=== PATIENT | male | born 1935 | race Caucasian/White ===

== ENCOUNTER 2018-07-12 15:30 | Inpatient (IN) | payer OTHER, MEDICAID ==
[~2018-07-12] VITALS: Ht 160 cm; Wt 72.6 kg
[2018-07-12] VITALS (7 sets, daily range): BP systolic 120–147; BP diastolic 39–74
--- NOTE | 2018-07-12 15:30 | NUR ---
patient was taken to bed 10
--- NOTE | 2018-07-12 15:35 | NUR ---
PT BIBA FOR NOSE POLYS PLACED ON CARESCAPE VENT SETTINGS AC14 VT500 PEEP5 FIO2 36% ALARMS ON AND AUDIBLE AMBU BAG AT SIDE OF VENT AND VENT IS PLUGGED INTO RED OUTLET, SXN PT FOR C&S SMALL AMT OF THICK WHITE SECRETIONS B\S ARE CLEAR BILATERALLY, PT IS TRACH WITH PORTEX 7 AND SKIN INTEGRITY IS INTACT.
[2018-07-12] MEDS: NACL 0.9% 500 ML IV SCH ×2 (16:00→16:55)
--- NOTE | 2018-07-12 16:00 | NUR ---
BIBA FROM [facility] FOR EVALUATION OF NASAL POLYPS. PT'S EYES OPENED SPONTANEOUSLY, UNABLE TO FOLLOW COMMANTS. PT TRACH TO VENT, NO SOB. G-TUBE IN PLACE. DIAPPER IN PLACE. PT RIGHT LEG AMPUTATION NOTED. BOTH UPPER EXTRIMITIES CONTRACTED. HX: RESPIRATORY FAILURE, VENT DEPENDENT, GERD, ANEMIA, DIABETES, COPD, HTN, BIPOLAR DISORDER FLACC 0. VSS; PATIENT POSITIONED FOR COMFORT; HOB ELEVATED; BEDRAILS UP X2; BED DOWN. ER MD MADE AWARE OF PT STATUS.
[2018-07-12] MEDS ORDERED: INSU100S45 SUBQ (16:07)
[2018-07-12] MEDS ORDERED: CHLO1SOL1 (16:07)
[2018-07-12] MEDS ORDERED: BISA-213 RC (16:07)
[2018-07-12] MEDS ORDERED: [UNRECOGNIZED DRUG - CODE] GT (16:07)
[2018-07-12] MEDS ORDERED: DOCU-299 GT (16:07)
[2018-07-12] MEDS ORDERED: NA P133E RC (16:07)
[2018-07-12] MEDS ORDERED: SUCR1SUS8 GT (16:07)
[2018-07-12] MEDS ORDERED: MULT1SGL58 GT (16:07)
[2018-07-12] MEDS ORDERED: MAGN400S60 GT (16:07)
[2018-07-12] MEDS ORDERED: MAGN400T7 GT (16:07)
[2018-07-12] MEDS ORDERED: ATOR10TA GT (16:07)
[2018-07-12] MEDS ORDERED: OMEP20TC12 GT (16:07)
[2018-07-12] MEDS ORDERED: FERR75LI22 GT (16:07)
[2018-07-12] MEDS ORDERED: ASCO500T45 GT (16:07)
[2018-07-12] MEDS ORDERED: LOV40I SUBQ (16:07)
[2018-07-12] MEDS ORDERED: AMLO2.5T GT (16:07)
[2018-07-12] MEDS ORDERED: SYN.075 GT (16:07)
[2018-07-12] MEDS ORDERED: MIRABULK GT (16:07)
[2018-07-12 16:21] LABS: BASOPHILS # (AUTO) 0.1 K/uL (0.00-0.22); BASOPHILS % (AUTO) 0.6 % (0.0-2.0); EOSINOPHILS # (AUTO) 0.4 K/uL (0-0.4); HEMATOCRIT 36.4 % (36-52); HEMOGLOBIN 11.7 g/dL (12.0-18.0); LYMPHOCYTES # (AUTO) 3.7 K/uL (2.0-11.5); MEAN CORPUSCULAR HEMOGLOBIN 26 pg (27-31); MEAN CORPUSCULAR HGB CONC 32 g/dL (33-37); MEAN CORPUSCULAR VOLUME 79.9 fL (80-94); MONOCYTES # (AUTO) 0.7 K/uL (0.8-1.0); MONOCYTES % (AUTO) 6.5 % (1.7-9.3); NEUTROPHILS # (AUTO) 6.2 K/uL (1.8-7.7); NEUTROPHILS % (AUTO) 55.9 % (42.2-75.2); PLATELET COUNT (AUTO) 180 K/uL (140-450); RED BLOOD CELL COUNT(AUTO) 4.56 MIL/uL (4.20-6.10); RED CELL DISTRIBUTION WIDTH 15.9 % (11.6-13.7); WHITE BLOOD COUNT (AUTO) 11.1 K/uL (4.8-10.8)
[2018-07-12 16:32] LABS: ANION GAP 9.2 (8-16); CARBON DIOXIDE 31.7 mmol/L (21-32); CHLORIDE 101 mmol/L (98-107); CREATININE 0.7 mg/dL (0.7-1.3); GLUCOSE 107 mg/dL (74-106); POTASSIUM 3.9 mmol/L (3.5-5.1); SODIUM SERUM 138 mmol/L (136-145); UREA NITROGEN, BLOOD 28 mg/dL (7-18)
[2018-07-12] MEDS ORDERED: PIPERACILLIN/TAZOBACTAM 3.375 GM in DEXTROSE 5% 50 ML IV ONE (16:35)
[2018-07-12 16:37] LABS: ALBUMIN 2.7 g/dL (3.4-5.0); ASPARTATE AMINOTRANSFERASE 15 U/L (15-37); TOTAL BILIRUBIN 0.4 mg/dL (0.0-1.0)
[2018-07-12 16:39] LABS: PROTHROMBIN TIME 9.9 secs (10.8-13.4)
[2018-07-12] MEDS ORDERED: PIPERACILLIN/TAZOBACTAM 3.375 GM VIAL IV ONE (16:52)
[2018-07-12] MEDS ORDERED: LEVOFLOXACIN 500 MG/D5W PREMIX 100 ML IV ONE (17:05)
[2018-07-12] MEDS ORDERED: ALBUTEROL SULFATE/IPRATROPIU 3 ML SOL IH PRN (17:20)
[2018-07-12] MEDS ORDERED: ACETAMINOPHEN 325 MG TAB PO PRN (17:20)
[2018-07-12] MEDS ORDERED: INSULIN LISPRO SLIDING SCALE 100 UNITS/ML VIAL SUBQ PRN (17:20)
[2018-07-12] MEDS ORDERED: DEXTROSE 50% 50 ML SYR IVP PRN (17:20)
[2018-07-12] MEDS ORDERED: ONDANSETRON 4 MG/2 ML VIAL IM/IVP PRN (17:20)
[2018-07-12 17:26] LABS: APPEARANCE,URINE CLEAR (CLEAR); BILIRUBIN,URINE NEGATIVE (NEGATIVE); BLOOD, URINE 2+ (NEGATIVE); COLOR,URINE YELLOW (YELLOW); LEUKOCYTE ESTERASE ,URINE 2+ (NEGATIVE); NITRITE, URINE NEGATIVE (NEGATIVE); UGLUCOSE NEGATIVE (NEGATIVE)
[2018-07-12 17:29] LABS: RBC,URINE 11-20 (MOD) /HPF (0-5); WBC,URINE 16-25 (MOD) /HPF (0-5)
--- NOTE | 2018-07-12 17:53 | NUR ---
SOME RASHES FOUND ON PT ARM AFTER LEVAQUIN GIVEN. NOTIFIED DR. PINEDA, PER DR. PINEDA, STOP LEVAQUIN INFUSION.
--- NOTE | 2018-07-12 18:10 | NUR ---
RECHKED PT, PT ARM RASHES GETTING BETTER.
[2018-07-12 18:57] LABS: MAGNESIUM 1.9 mg/dL (1.8-2.4); PHOSPHORUS 3.6 mg/dL (2.5-4.9); THYROID STIMULATING HORMONE 1.69 uIU/mL (0.34-3.74)
[2018-07-12] MEDS: ALBUTEROL SULFATE/IPRATROPIU 3 ML SOL IH SCH (19:00)
--- NOTE | 2018-07-12 19:15 | NUR ---
ENDORSED PT TO PM NURSE, PT OPENS EYES BUT STILL DOES NOT FOLLOW COMMANDS. NO SOB PT VITALS STABLE AT THIS MOMENT.
--- NOTE | 2018-07-12 19:55 | NUR ---
REPORT RECEIVED FROM ED NURSE AT BEDSIDE. PT IN STABLE CONDITION. AAOX1. INTRODUCED SELF TO PT. BOARD UPDATED. FLACC 0. NO SOB. AFEBRILE. IV SITE L FA 22G RUNNING NS@50ML/HR PATENT AND INTACT. SKIN WARM, DRY, AND NOT INTACT DUE TO SACRAL PRESSURE ULCER AND WOUND ON RIGHT SIDE OF FOREHEAD. PT ON TRACH TO MECH VENT. SETTINGS ARE FIO2 36%, VT 500, RR 14, AND PEEP 5. PT HAS GTUBE ALREADY IN PLACE. BED LOCKED IN LOW POSITION. CALL TURNER WITHIN REACH. SAFETY PRECAUTIONS IN PLACE. ALL NEEDS MET AT THIS TIME.
--- NOTE | 2018-07-12 20:00 | NUR ---
Admited to Tele. Will go to room 123-B; patient acting appropriatly to baseline, VSS. Belongings list completed. Report to BRAXTON Fish.
--- NOTE | 2018-07-12 20:30 | NUR ---
ED MENTIONED THAT LEVAQUIN WAS GIVING PT A RASH WHEN INFUSING. MD NOTIFIED. AWAITING ORDERS.
[2018-07-12] MEDS ORDERED: NON-FORMULARY ITEM (Bisacodyl (Dulcolax) 10 MG) RC PRN (20:35)
[2018-07-12] MEDS ORDERED: MAGNESIUM HYDROXIDE 2400 MG/30 ML UDC GT PRN (20:35)
[2018-07-12] MEDS ORDERED: POLYETHYLENE GLYCOL 17 GM/PKT GT PRN (20:35)
[2018-07-12] MEDS ORDERED: SODIUM PHOSPHATE 118 ML ENEM RC PRN (20:35)
--- NOTE | 2018-07-12 20:45 | NUR ---
MD ORDERED TO STOP INFUSION AND WASTE REST OF LEVAQUIN DUE TO POSSIBLE ADVERSE REACTION TO MEDICATION.
[2018-07-12] MEDS ORDERED: BISACODYL 10 MG SUPP RC PRN (21:00)
[2018-07-12] MEDS ORDERED: SUCRALFATE 1 GM GT SCH (21:00)
[2018-07-12] MEDS: CITRIC ACID/SODIUM CITRATE 30 ML UDC GT SCH (21:29)
[2018-07-12] MEDS: LANSOPRAZOLE 30 MG CAPDR PO SCH (21:30)
[2018-07-12] MEDS: SUCRALFATE 1 GM TAB GT SCH (21:30)
[2018-07-12] MEDS: DOCUSATE SODIUM 100 MG GELCAP PO SCH (21:30)
[2018-07-12] MEDS: ATORVASTATIN 20 MG TAB GT SCH (21:30)
[2018-07-12] MEDS: BLOOD GLUCOSE MONITORING 1 DEV DEV FS SCH (21:33)
[2018-07-12] MEDS ORDERED: CITRIC ACID/SODIUM CITRATE 30 ML UDC ONE (21:34)
--- NOTE | 2018-07-12 21:40 | NUR ---
SWOOSH CHECK HEARD FOR PLACEMENT. NO RESIDUAL. ADMINISTERED MEDS SCHEDULED. FLUSHED BEFORE AND AFTER ADMIN. TOLERATED WELL. NO COMPLAINTS AT THIS TIME. SET UP G TUBE FEEDING AT 10. FLUSH OF 175CC Q6H. FEEDING VITAL AF 1.2. NO SIGNS OF DISTRESS OR DISCOMFORT. WILL CONTINUE TO MONITOR.
[2018-07-12] MEDS: NACL 0.9% 1,000 ML IV SCH (22:30)
--- NOTE | 2018-07-12 23:22 | NUR ---
PT SLEEPING IN BED. TRACH TO VENT. NO SIGNS OF RESP DISTRESS OR DISCOMFORT. EASILY AROUSABLE. BED IN LOW POSITION. CALL LIGHT WITHIN REACH. FALL PRECAUTIONS REMAIN IN PLACE. WILL CONTINUE TO MONITOR.
[2018-07-13] VITALS (9 sets, daily range): BP systolic 105–156; BP diastolic 35–80
[2018-07-13] MEDS: PIPERACILLIN/TAZOBACTAM 3.375 GM in DEXTROSE 5% 50 ML IV SCH ×2 (00:10→05:25)
--- NOTE | 2018-07-13 00:10 | NUR ---
ADMINISTERED ZOSYN. EDUCATED ON SIDE EFFECTS. TOLERATED WELL. NO PAIN AT THIS TIME. NO RESP DISTRESS OR DISCOMFORT. WILL CONTINUE TO MONITOR.
[2018-07-13] MEDS ORDERED: PIPERACILLIN/TAZOBACTAM 3.375 GM VIAL IV ONE ×2 (00:11→05:24)
--- NOTE | 2018-07-13 02:30 | NUR ---
INCREASED VITAL AF 1.2 FEEDING TO RATE 20. TOLERATED WELL. DELIVERED 100% O2 AND SUCTIONED PT. TOLERATED WELL. NO SIGN OF RESP DISTRESS. BED IN LOW POSITION. CALL LIGHT WITHIN REACH. WILL CONTINUE TO MONITOR.
--- NOTE | 2018-07-13 04:00 | NUR ---
PT SLEEPING IN BED, EASILY AROUSABLE. NO SIGNS OF DISTRESS NOTED. BED IN LOW POSITION. CALL LIGHT WITHIN REACH. WILL CONTINUE TO MONITOR.
[2018-07-13] MEDS ORDERED: CITRIC ACID/SODIUM CITRATE 30 ML UDC ONE (05:23)
[2018-07-13] MEDS: CITRIC ACID/SODIUM CITRATE 30 ML UDC GT SCH ×3 (05:24→20:18)
--- NOTE | 2018-07-13 05:26 | NUR ---
ADMINISTERED MEDS SCHEDULED. EDUCATED. VERBALIZED. TOLERATED WELL. SWOOSH HEARD FOR G TUBE PLACEMENT. FLUSHED BEFORE AND AFTER. WILL CONTINUE TO MONITOR.
--- NOTE | 2018-07-13 05:40 | NUR ---
PATIENT HAS BEEN SCREENED AND CATEGORIZED HIGH NUTRITION RISK. PATIENT WILL BE SEEN WITHIN 1-2 DAYS OF ADMISSION. 07/13/18-07/14/18 ROJAS HUBBARD MS, RDN
[2018-07-13] MEDS: BLOOD GLUCOSE MONITORING 1 DEV DEV FS SCH ×4 (05:54→20:05)
--- NOTE | 2018-07-13 05:57 | NUR ---
BLOOD SUGAR 107. NO COVERAGE NEEDED.
[2018-07-13] MEDS: ALBUTEROL SULFATE/IPRATROPIU 3 ML SOL IH SCH ×3 (06:40→20:01)
--- NOTE | 2018-07-13 06:41 | NUR ---
RECEIVED PT ON CARESCAPE ON DOCUMENTED SETTINGS, ALARMS ARE ON AND AUDIBLE, PTS TRACH PORTEX 7 IS SECURE, PT IN HF ASLEEP BS COARSE, HHN GIVEN I\L WITH 3 MG DUONEB BMV HOB, VENT PLUGGED INTO RED OUTLET, CONT. POX IN PLACE
--- NOTE | 2018-07-13 07:27 | NUR ---
RECEIVED BED SIDE REPORT FROM DIAL POLISHER RN, PT AWAKE, CAN TRACK RN BUT NONVERBAL. PT ON VENT IN NO RESPIRATORY DISTRESS FIO2 36%, VT 500, RR14, FLOW 40L/MIN. PEEP 5 ON AC MODE, G TUBE WITH SITE CLEAN AND DRY AND INTACT. VITALS AF 1.2 RUNNING AT 30MLHR WHICH WAS INCREASED AT 0650. GOAL TO BE 70CC/HR. AKA SITE CLEAN AND DRY AND LEFT FINGERS AMPUTATED. PT INCONTINENT. PT IS CONTRACTED AND BEDBOUND. IV L FOREARM 22G RUNNING NS AT 60ML/HR. ERINN DIAS CONSULT FOR CHRONIC RESP FAILURE. WOUND EVAL PENDING. BED ALARM ON, CALL LIGHT WITHIN REACH, WILL CONTINUE TO MONITOR
--- NOTE | 2018-07-13 07:27 | NUR ---
GAVE BEDSIDE REPORT TO DAY SHIFT RN. PT IN STABLE CONDITION.
[2018-07-13] MEDS ORDERED: PANTOPRAZOLE 40 MG TABEC PO SCH (07:30)
[2018-07-13 07:55] LABS: ANION GAP 12.6 (8-16); CHLORIDE 105 mmol/L (98-107); CREATININE 0.8 mg/dL (0.7-1.3); GLUCOSE 113 mg/dL (74-106); POTASSIUM 3.6 mmol/L (3.5-5.1); SODIUM SERUM 143 mmol/L (136-145); UREA NITROGEN, BLOOD 22 mg/dL (7-18)
[2018-07-13 08:00] LABS: BASOPHILS % (AUTO) 0.4 % (0.0-2.0); EOSINOPHILS # (AUTO) 0.4 K/uL (0-0.4); EOSINOPHILS % (AUTO) 3.7 % (0.0-4.0); HEMATOCRIT 35.3 % (36-52); HEMOGLOBIN 11.3 g/dL (12.0-18.0); LYMPHOCYTES # (AUTO) 3.4 K/uL (2.0-11.5); LYMPHOCYTES % (AUTO) 30.5 % (20.5-51.1); MEAN CORPUSCULAR HEMOGLOBIN 26 pg (27-31); MEAN CORPUSCULAR HGB CONC 32 g/dL (33-37); MEAN CORPUSCULAR VOLUME 80.5 fL (80-94); MONOCYTES # (AUTO) 0.8 K/uL (0.8-1.0); NEUTROPHILS # (AUTO) 6.6 K/uL (1.8-7.7); NEUTROPHILS % (AUTO) 58.4 % (42.2-75.2); PLATELET COUNT (AUTO) 156 K/uL (140-450); RED BLOOD CELL COUNT(AUTO) 4.39 MIL/uL (4.20-6.10); RED CELL DISTRIBUTION WIDTH 15.6 % (11.6-13.7); WHITE BLOOD COUNT (AUTO) 11.3 K/uL (4.8-10.8)
[2018-07-13 08:04] LABS: MAGNESIUM 1.8 mg/dL (1.8-2.4); PHOSPHORUS 3.7 mg/dL (2.5-4.9)
[2018-07-13 08:07] LABS: CHOL/HDL RATIO 2.9 (1-4.5)
[2018-07-13] MEDS: LANSOPRAZOLE 30 MG CAPDR PO SCH ×2 (08:10→20:18)
[2018-07-13] MEDS: SUCRALFATE 1 GM TAB GT SCH ×4 (08:11→20:18)
[2018-07-13] MEDS: LEVOTHYROXINE 0.075 MG TAB GT SCH (08:11)
[2018-07-13] MEDS: DOCUSATE SODIUM 100 MG GELCAP PO SCH ×2 (08:12→20:18)
[2018-07-13] MEDS: LACTOBACILLUS RHAMNOSUS GG 1 EACH CAP PO SCH (08:12)
[2018-07-13] MEDS ORDERED: NON-FORMULARY ITEM (Ferrous Sulfate 7.5 ML) GT SCH (09:00)
[2018-07-13] MEDS ORDERED: FERROUS SULFATE 300 MG/5 ML UDC PO SCH (09:00)
[2018-07-13] MEDS ORDERED: ASCORBIC ACID 500 MG TAB GT SCH (09:00)
[2018-07-13] MEDS ORDERED: LACTOBACILLUS RHAMNOSUS GG 1 EACH CAP GT SCH (09:00)
--- NOTE | 2018-07-13 09:20 | NUR ---
CIRCUIT LEAK ALARM ON. CALLED RT
[2018-07-13] MEDS ORDERED: HYDRAGUARD CREAM TP PRN (09:35)
[2018-07-13] MEDS: NACL 0.9% 1,000 ML IV SCH ×2 (09:56→23:43)
--- NOTE | 2018-07-13 10:08 | NUR ---
RD RECOMMENDATIONS: 1. CONTINUE ENTERAL FEEDINGS OF VITAL AF 1.2 AT 30 ML/HR, INCREASING BY 10 ML QH UNTIL GOAL OF 70 ML/HR IS REACHED. 2. RD WILL F/U 2-3 DAYS; HIGH RISK. ROJAS HUBBARD MS, RDN
--- NOTE | 2018-07-13 11:05 | NUR ---
INCREASED G TUBE RATE BY 10. CURRENTLY RUNNING AT 40CC/HR
[2018-07-13] MEDS: PIPER/TAZO 3.375GM/D5W PREMIX 50 ML IV SCH ×3 (11:14→23:42)
--- NOTE | 2018-07-13 11:38 | NUR ---
PT RESTING COMFORTABLY IN BED, VS STABLE, O2 98% VIA MECH VENT, SUCTIONED A FEW TIMES THIS MORNING, CAME TO SEE PT THIS MORNING ALSO. NO NEW ORDERS NOTED. WILL CONTINUE TO MONITOR
--- NOTE | 2018-07-13 14:20 | NUR ---
INCREASED G TUBE FEEDING BY 10CC/HR. CURRENTLY RUNNING 50CC/HR. WILL CONTINUE TO MONITOR
--- NOTE | 2018-07-13 14:34 | NUR ---
PT RESTING COMFORTABLY, NO CHANGE IN CONDITION, WILL CONTINUE TO MONITOR
--- NOTE | 2018-07-13 17:54 | NUR ---
PT RESTING COMFORTABLY IN BED, RT CAME TO SEE PT AND SUCTIONED HIM. PT APPEARS IN NO RESPIRATORY DISTRESS. VENT SETTING CONTINUE TO BE THE SAME. WILL CONTINUE TO MONITOR
--- NOTE | 2018-07-13 19:18 | NUR ---
GAVE BEDSIDE REPORT TO AIRLINE FLIGHT ATTENDANT RN, PT IN STABLE CONDITION
--- NOTE | 2018-07-13 19:19 | NUR ---
REPORT RECEIVED FROM AM NURSE AT BEDSIDE. PT IN STABLE CONDITION. AAOX1. INTRODUCED SELF TO PT. BOARD UPDATED. FLACC 0. NO SOB. PT TRACH TO [facility] VENT. VENT SETTINGS FIO2 36%, VT 500, RR 14, PEEP 5, SPO2 98%. AFEBRILE. IV SITE L FA 22G RUNNING NS@60ML/HR PATENT AND INTACT. SKIN WARM, DRY, AND NOT INTACT DUE TO A SACRAL PRESSURE ULCER AND LEFT FOREHEAD WOUND. PT ON FEEDING VITAL AF 1.2 CURRENTLY RUNNING@60ML/HR WITH 175ML H2O FLUSH Q6H. MAX RATE OF 70ML/HR. PT BEDBOUND DUE TO R AKA. PT HAS LEFT FINGER AMPUTATIONS. BED LOCKED IN LOW POSITION. CALL TURNER WITHIN REACH. SAFETY PRECAUTIONS IN PLACE. ALL NEEDS MET AT THIS TIME.
--- NOTE | 2018-07-13 20:05 | NUR ---
BS 123. NO INSULIN COVERAGE NEEDED.
--- NOTE | 2018-07-13 20:07 | NUR ---
PATIENT RECEIVED ON DOCUMENTED VENT SETTINGS. TRACH PATENT AND SECURE. NO SOB OR DISTRESS NOTED. VITALS ARE STABLE. CONTINUOUS PULSE OX IN PLACE. VENT PLUGGED INTO RED OUTLET. AMBU BAG AT BEDSIDE. ALARMS ON AND AUDIBLE.
[2018-07-13] MEDS: ATORVASTATIN 20 MG TAB GT SCH (20:18)
--- NOTE | 2018-07-13 20:18 | NUR ---
BICITRA, CARAFATE, LIPITOR, COLACE, AND PREVACID GIVEN THROUGH GTUBE. RESIDUAL OF 25ML. PT TOLERATING FEEDING WELL.
--- NOTE | 2018-07-13 21:45 | NUR ---
PT SLEEPING COMFORTABLY IN BED SUPINE. NO S/S OF DISTRESS NOTED. NO SOB. AFEBRILE. WILL CONTINUE TO MONITOR.
--- NOTE | 2018-07-13 23:42 | NUR ---
JUNIOR HUNG AND RUNNING. PT TOLERATED WELL.
[2018-07-14] VITALS: BP 143/43
--- NOTE | 2018-07-14 00:20 | NUR ---
FEEDING CHANGED. RESIDUAL OF 25ML. Addendum: 07/14/18 at 0606 by Abe Kraft RN RATE CHANGED TO 70ML/HR.
--- NOTE | 2018-07-14 01:55 | NUR ---
PT SLEEPING COMFORTABLY IN BED SUPINE. NO S/S OF DISTRESS NOTED. NO SOB. AFEBRILE. WILL CONTINUE TO MONITOR.
--- NOTE | 2018-07-14 03:15 | NUR ---
PT SLEEPING COMFORTABLY IN BED. NO S/S OF DISTRESS NOTED. RESPIRATIONS EVEN, UNLABORED, AND WNL. WILL CONTINUE TO MONITOR.
[2018-07-14] MEDS: CITRIC ACID/SODIUM CITRATE 30 ML UDC GT SCH ×3 (05:12→21:34)
[2018-07-14] MEDS: PIPER/TAZO 3.375GM/D5W PREMIX 50 ML IV SCH ×3 (05:12→17:53)
--- NOTE | 2018-07-14 05:12 | NUR ---
BICITRA GIVEN THROUGH Allena PharmaceuticalsUBE. ZOSYN HUNG AND RUNNING. PT TOLERATED WELL.
[2018-07-14] MEDS: BLOOD GLUCOSE MONITORING 1 DEV DEV FS SCH ×4 (05:40→20:48)
--- NOTE | 2018-07-14 05:40 | NUR ---
BS 122. NO INSULIN COVERAGE REQUIRED.
[2018-07-14 06:25] LABS: BASOPHILS % (AUTO) 0.4 % (0.0-2.0); EOSINOPHILS # (AUTO) 0.3 K/uL (0-0.4); EOSINOPHILS % (AUTO) 3.2 % (0.0-4.0); HEMATOCRIT 34.2 % (36-52); LYMPHOCYTES # (AUTO) 3.2 K/uL (2.0-11.5); LYMPHOCYTES % (AUTO) 29.8 % (20.5-51.1); MEAN CORPUSCULAR HEMOGLOBIN 26 pg (27-31); MEAN CORPUSCULAR HGB CONC 32 g/dL (33-37); MEAN CORPUSCULAR VOLUME 80.4 fL (80-94); MONOCYTES # (AUTO) 0.9 K/uL (0.8-1.0); NEUTROPHILS # (AUTO) 6.2 K/uL (1.8-7.7); NEUTROPHILS % (AUTO) 58.6 % (42.2-75.2); PLATELET COUNT (AUTO) 154 K/uL (140-450); RED BLOOD CELL COUNT(AUTO) 4.25 MIL/uL (4.20-6.10); RED CELL DISTRIBUTION WIDTH 15.8 % (11.6-13.7); WHITE BLOOD COUNT (AUTO) 10.6 K/uL (4.8-10.8)
[2018-07-14 06:46] LABS: ANION GAP 12.6 (8-16); CARBON DIOXIDE 27.8 mmol/L (21-32); CHLORIDE 107 mmol/L (98-107); CREATININE 0.7 mg/dL (0.7-1.3); GLUCOSE 135 mg/dL (74-106); POTASSIUM 3.4 mmol/L (3.5-5.1); SODIUM SERUM 144 mmol/L (136-145); UREA NITROGEN, BLOOD 20 mg/dL (7-18)
[2018-07-14 06:47] LABS: MAGNESIUM 1.8 mg/dL (1.8-2.4); PHOSPHORUS 3.3 mg/dL (2.5-4.9)
[2018-07-14] MEDS: ALBUTEROL SULFATE/IPRATROPIU 3 ML SOL IH SCH ×3 (06:55→19:56)
--- NOTE | 2018-07-14 06:55 | NUR ---
REC'D PT ON CARESCAPE VENT SETTINGS AC 14 VT 500 PEEP 5 FIO2 36% ALARMS ON AND AUDIBLE AND AMBU BAG IS AT SIDE OF VENT AND VENT IS PLUGGED INTO RED OUTLET, I\L TX GIVEN WITH DUONEB 3ML WITH NO ADVERSE REACTION POST TX B\S ARE RHONCHI BILATERALLY, SXN PT MODERATE AMT OF THICK WHITE SECRETIONS, PT IS TRACH WITH PORTEX 7 AND SKIN INTEGRITY IS INTACT AND PT IS RESTING
--- NOTE | 2018-07-14 07:30 | NUR ---
REPORT GIVEN TO AM NURSE AT BEDSIDE. PT IN STABLE CONDITION.
--- NOTE | 2018-07-14 07:31 | NUR ---
RECEIVED BED SIDE REPORT FROM SOLAR INSTALLATION SUPERVISOR RN. PT STABLE RESTING COMFORTABLY IN BED, ON MECH VENT WITH SAME FIO2 SETTINGS. APPEARS IN NO PAIN, SCDS ONL FOREARM 22G RUNNING 60ML/HR, IV SITE CLEAN AND DRY, G TUBE FEEDING ON HOLD D/T HIGH RESIDUAL DURING SOLAR INSTALLATION SUPERVISOR. WILL CONTINUE TO MONITOR
[2018-07-14] MEDS ORDERED: HYDRAGUARD CREAM TP PRN (07:46)
[2018-07-14] MEDS ORDERED: FERROUS SULFATE 300 MG/5 ML UDC PO SCH (07:47)
--- NOTE | 2018-07-14 07:50 | NUR ---
PT'S RESIDUAL 10CC. RESUMED G TUBE FEEDIN GVITALS AF 1.2 AT 70CC/HR, WILL CONTINUE TO MONITOR
[2018-07-14 08:00] VITALS: BP 147/59
[2018-07-14] MEDS: DOCUSATE SODIUM 100 MG GELCAP PO SCH ×2 (08:58→21:00)
[2018-07-14] MEDS: LEVOTHYROXINE 0.075 MG TAB GT SCH (09:13)
[2018-07-14] MEDS: LACTOBACILLUS RHAMNOSUS GG 1 EACH CAP PO SCH (09:13)
[2018-07-14] MEDS: SUCRALFATE 1 GM TAB GT SCH ×4 (09:13→21:34)
[2018-07-14] MEDS: FERROUS SULFATE 300 MG/5 ML UDC GT SCH (09:14)
[2018-07-14] MEDS: ASCORBIC ACID 500 MG/5 ML ORASYR GT SCH (09:14)
[2018-07-14] MEDS: LANSOPRAZOLE 30 MG CAPDR PO SCH ×2 (09:15→21:37)
--- NOTE | 2018-07-14 10:35 | NUR ---
BED BATH PROVIDED, PT HAS BMX1, URINEX1, CHANGED ALL BED LINENS. PT TOLERATED WELL. APPLIED Z GUARD, TO BENSON AREA AND RIGHT ELBOW. OPTIFOAM DRESSING IS INTACT AND CLEAN.
[2018-07-14] MEDS ORDERED: Z-GUARD PASTE TP ONE ×2 (10:40→12:05)
[2018-07-14] MEDS ORDERED: Z-GUARD PASTE TP PRN (12:30)
[2018-07-14] MEDS ORDERED: POTASSIUM CHLORIDE 20% 40 MEQ/15 ML UDC GT SCH (12:30)
[2018-07-14] MEDS: MUPIROCIN CA NASAL 2% 1GM TUBE NS SCH ×2 (14:24→14:27)
[2018-07-14] MEDS: CHLORHEXADINE GLUC 2% CLOTH TP SCH ×2 (14:25→14:27)
--- NOTE | 2018-07-14 15:30 | NUR ---
G TUBE DRESSING CHANGED. SKIN UNDER G TUBE PINK BUT BLANCHABLE. APPLIED HYDROGUARD TO SKIN. WILL CONTINUE TO MONITOR
[2018-07-14 16:00] VITALS: BP 143/43
--- NOTE | 2018-07-14 16:01 | NUR ---
WOUND CARE EVALUATION NOTE: REASON FOR EVALUATION: LOW MALLORIE SCALE AND BUTTOCK WOUND SKIN ASSESSMENT DONE WITH THIS 83 Y/O MALE PT ADMITTED FROM [facility] [facility] TO [facility] WITH INITIAL DX NASAL POLYP. PAST MEDICAL HX INCLUDES HTN, DM, TRACH TO VENT, RIGHT AKA AND G-TUBE. ALL ABOVE INFORMATION OBTAINED FROM ADMISSION H&P. PT SKIN IS WARM AND DRY, MULTIPLE HEALED SKIN GRAFTS TO ABDOMINAL (POSSIBLE DONOR SITES) AND RIGHT/ LEFT HIPS AND THIGHS (POSSIBLE RECIPIENT SITES). SEVERE CONTRACTURES TO UPPER EXTREMITIES, ELBOWS TO WRISTS AND ALL FINGERS. RIGHT AKA STUMP OLD HEALED SCAR. LLE SKIN DRY, CAPILLARY REFILLED < 2 SEC. X 5 TOES. INCONTINENT OF BOWEL X1 DURING ASSESSMENT. PLAN OF CARE DISCUSSED WITH PRIMARY RN. CLARIFICATION SACRALCOCCYX SKIN INTACT AND DRY NO OPEN WOUND INTEGUMENTARY: -TRACH SITE BENSON STOMA SKIN DRY AND CLEAN. SKIN INTACT. - GT SITE BENSNO STOMA WITH SKIN INTACT. -ABDOMEN DISTENDED, SOFT WITH MULTIPLE HEALED SCARS -INCONTINENT ASSOCIATE DERMATITIS (IAD) TO: B/L GROINS EXTENDED TO PERINEUM, AND SCROTAL AREAS, SKIN REDNESS -PRESSURE ULCER INJURY STAGE 1, RIGHT ELBOW 2X2CM, BENSON-WOUND SKIN INTACT RECOMMENDATIONS: -APPLY HYDRAGUARD TO RIGHT AKA STUMP MULTIPLE HEALED SKIN GRAFTS TO ABDOMENAL AND RIGHT/ LEFT HIPS AND THIGHTS -APPLY Z-GUARD TO R/L GROINS EXTENDED TO PERINEUM, AND SCROTAL AREAS BID AND PRN IF SOILING - CLEANSE LEFT BUTTOCK AND RIGHT LATERAL MALLEOLUS WITH WOUND CLEANSING SOLUTION AND APPLY THERAHONEY GEL COVER WITH DRY DRESSING QD AND PRN IF SOILING -APPLY FOAM DRESSING TO RIGHT ELBOW Q7 DAYS AND PRN IF SOILING -APPLY HEEL PROTECTORS TO LEFT HEEL AND RIGHT AKA STUMP AT ALL TIMES -OFFLOAD BILATERAL HEELS BY PLACING PILLOWS UNDER CALVES UNLESS OTHERWISE CONTRAINDICATED -PRESSURE REDISTRIBUTION SURFACE THERAPY -TURN AND REPOSITION Q2H, OFFLOAD SACRALCOCCYX AND BUTTOCKS BY TURNING RIGHT AND LEFT -CONTINUE TO FOLLOW RD RECOMMENDATIONS ALL ABOVE RECOMMENDATIONS DISCUSSED WITH PRIMARY RN. WILL FOLLOW UP PT Q7-10 DAYS. PLEASE CONTACT WOUND CARE NURSE FOR ANY QUESTION AND CHANGE OF WOUND CONDITION.
--- NOTE | 2018-07-14 17:11 | NUR ---
PT HR 52, NOTIFIED DR MUÑOZ. DR MUÑOZ STATED IF GOES DOWN TO THE 40S, WILL PLACE PT ON TELE.
--- NOTE | 2018-07-14 17:38 | NUR ---
PT HAS HAD A TOTAL OF 5 BM DURING SHIFT. BM LIQUID AND BROWN. COLACE WILL BE HELD
[2018-07-14] MEDS: NACL 0.9% 1,000 ML IV SCH (17:53)
--- NOTE | 2018-07-14 18:07 | NUR ---
GASTRIC RESIDUAL 10CC. GAVE SUCRALFATE
--- NOTE | 2018-07-14 19:19 | NUR ---
GAVE BEDSIDE REPORT TO JUKEBOX ROUTEMAN RN. PT IN STABLE CONDITION
--- NOTE | 2018-07-14 19:20 | NUR ---
RECEIVED BEDSIDE REPORT FROM AM NURSE. TELE MONITORING. AAOX1. NON VERBAL NON-AMBULATORY. FLACC 0. NO SOB. PT TRACH TO [facility] VENT. VENT SETTINGS FIO2 36%, VT 500, RR 14, PEEP 5, SPO2 100%. AFEBRILE. IV SITE L FA 22G RUNNING NS@60ML/HR PATENT AND INTACT. SKIN WARM, DRY, AND NOT INTACT WITH WOUNDS (SEE WOUND ASSESSMENT) PT ON FEEDING VITAL AF 1.2 CURRENTLY RUNNING@70ML/HR WITH 175ML H2O FLUSH Q6H. PT HAS R AKA. PT HAS LEFT FINGER AMPUTATIONS. BED LOCKED IN LOW POSITION. CALL TURNER WITHIN REACH. SAFETY PRECAUTIONS IN PLACE. WILL CONTINUE TO MONITOR
[2018-07-14 19:56] VITALS: BP 138/60
--- NOTE | 2018-07-14 19:56 | NUR ---
RECEIVED ON A [employer] CARESCAPE R860 VENTILATOR PLUGGED ONTO RED OUTLET TOLERATING WELL WITHOUT ADVERSE REACTIONS NOTED TO A PORTEX DCT #7 AIRWAY SECURED WITH A LORENZO TRACH TIE CUFF PRESSURE CHECKED NOTED TONI RADICAL-7 CONTINUOUS PULSE OXIMETER AT BEDSIDE ON AND FUNCTIONING WELL AMBU BAG AT [facility] LOC AWAKE STABLE NO EVIDENCE OF PULMONARY DISTRESS NOTED BREATH SOUNDS COARSE RHONCHI BILATERAL WITH GOOD CHEST RISE DEEP TRACHEAL SUCTION FOR LARGE THIN ZAMORA SECRETIONS AIRWAY PATENT
--- NOTE | 2018-07-14 20:02 | NUR ---
SATURATION 100% ON FIO2 OF 36% POST HHN THERAPY TITRATED FIO2 TO 30% CAMERON/RN AT BEDSIDE NOTIFIED OF CHANGE
--- NOTE | 2018-07-14 21:20 | NUR ---
RESTING WELL NO DISTRESS NOTED GOOD CHEST RISE DEEP TRACHEAL SUCTION FOR MODERATE SEMI THICK PALE YELLOW TO CLEAR SECRETIONS AIRWAY PATENT
[2018-07-14] MEDS: ATORVASTATIN 20 MG TAB GT SCH (21:36)
--- NOTE | 2018-07-14 21:38 | NUR ---
PT HAD A RECENT BM LARGE ONE,INFORMED DR. HERNANDEZ. NEHEMIAS ARMSTRONG Addendum: 07/15/18 at 0642 by Maritza Geronimo RN LOOSE BOWEL MOVEMENT-LARGE IN AMOUNT
--- NOTE | 2018-07-14 21:45 | NUR ---
PT TURNED TO ONE SIDE, TOLERATING WELL.
--- NOTE | 2018-07-14 23:50 | NUR ---
NO SOB NOTED GOOD CHEST RISE DEEP TRACHEAL SUCTION FOR THIN PALE YELLOW TO CLEAR SECRETIONS AIRWAY PATENT
[2018-07-15] VITALS: BP 119/55
--- NOTE | 2018-07-15 00:20 | NUR ---
FF UP W/ VITAL AF I. 2. 5 ML RESIDUAL NOTED BEFORE STARTING THE FEEDING. PT TOLERATING WELL
[2018-07-15] MEDS: PIPER/TAZO 3.375GM/D5W PREMIX 50 ML IV SCH ×5 (01:00→22:59)
[2018-07-15] MEDS: HYDRAGUARD CREAM TP SCH ×2 (01:04→12:24)
[2018-07-15] MEDS: Z-GUARD PASTE TP SCH ×2 (01:05→12:24)
--- NOTE | 2018-07-15 01:05 | NUR ---
IAD ON BILATERAL GROINS TO PERINEUM, REDNESS ON SCROTUM -Z-GUARD TX DONE RIGHT AKA STUMP, MULTIPLE HEALED SKIN GRAFTS -HYDRAGUARD TX DONE LEFT BUTTOCK, R LATERAL MALLEOLUS-CLEANSING GRETTA LILLY TX DONE, COVERED W/ DRY DRESSING RIGHT ELBOW- FOAM DRESSING STILL IN PLACE, REINFORCED
--- NOTE | 2018-07-15 01:12 | NUR ---
CLEANED PT, SOAKED W/ URINE. 1X TURNED TO ONE SIDE
--- NOTE | 2018-07-15 01:35 | NUR ---
RESTING COMFORTABLY GOOD CHEST RISE DEEP TRACHEAL SUCTION FOR SMALL THIN PALE YELLOW TO CLEAR SECRETIONS AIRWAY PATENT
--- NOTE | 2018-07-15 03:26 | NUR ---
NO DISTRESS NOTED AT THIS TIME GOOD CHEST RISE DEEP TRACHEAL SUCTION FOR SMALL THIN PALE YELLOW SECRETIONS AIRWAY PATENT
[2018-07-15 04:45] LABS: TRANSFERRIN 165 mg/dL (200 - 370)
[2018-07-15] MEDS: CITRIC ACID/SODIUM CITRATE 30 ML UDC GT SCH ×3 (05:12→21:06)
--- NOTE | 2018-07-15 05:38 | NUR ---
NO DISTRESS NOTED GOOD CHEST RISE DEEP TRAHEAL SUCTION FOR SMALL THIN YELLOW SECRETIONS AIRWAY PATENT
[2018-07-15 06:13] LABS: FERRITIN 250 ng/mL (30-400)
[2018-07-15] MEDS: BLOOD GLUCOSE MONITORING 1 DEV DEV FS SCH ×4 (06:32→21:01)
[2018-07-15 06:34] LABS: BASOPHILS # (AUTO) 0.1 K/uL (0.00-0.22); BASOPHILS % (AUTO) 0.7 % (0.0-2.0); EOSINOPHILS # (AUTO) 0.4 K/uL (0-0.4); EOSINOPHILS % (AUTO) 3.7 % (0.0-4.0); HEMATOCRIT 31.8 % (36-52); HEMOGLOBIN 10.3 g/dL (12.0-18.0); LYMPHOCYTES # (AUTO) 3.7 K/uL (2.0-11.5); LYMPHOCYTES % (AUTO) 34.5 % (20.5-51.1); MEAN CORPUSCULAR HEMOGLOBIN 26 pg (27-31); MEAN CORPUSCULAR HGB CONC 32 g/dL (33-37); MEAN CORPUSCULAR VOLUME 80.6 fL (80-94); MONOCYTES # (AUTO) 0.8 K/uL (0.8-1.0); MONOCYTES % (AUTO) 7.3 % (1.7-9.3); NEUTROPHILS # (AUTO) 5.8 K/uL (1.8-7.7); NEUTROPHILS % (AUTO) 53.8 % (42.2-75.2); PLATELET COUNT (AUTO) 130 K/uL (140-450); RED BLOOD CELL COUNT(AUTO) 3.95 MIL/uL (4.20-6.10); RED CELL DISTRIBUTION WIDTH 15.7 % (11.6-13.7); WHITE BLOOD COUNT (AUTO) 10.8 K/uL (4.8-10.8)
[2018-07-15 06:39] LABS: ANION GAP 14.4 (8-16); CARBON DIOXIDE 23.4 mmol/L (21-32); CHLORIDE 109 mmol/L (98-107); CREATININE 0.6 mg/dL (0.7-1.3); GLUCOSE 100 mg/dL (74-106); POTASSIUM 3.8 mmol/L (3.5-5.1); SODIUM SERUM 143 mmol/L (136-145); UREA NITROGEN, BLOOD 17 mg/dL (7-18)
--- NOTE | 2018-07-15 06:43 | NUR ---
PT A, A,0 X 1, SPONTANEOUS EYE OPENING WITH RIGHT NASAL POLYP.PT; IN STABLE CONDITION AT THIS TIME NO PAIN, NO S0B. PAIN HAD 2X LOOSE BM DR. RODRÍGUEZ AWARE. WILL ENDORSE TO NEXT SHIFT.
--- NOTE | 2018-07-15 06:43 | NUR ---
HAD ANOTHER LOOSE BM, PLACED A FECAL BAG
[2018-07-15 06:55] LABS: PHOSPHORUS 3.2 mg/dL (2.5-4.9)
[2018-07-15] MEDS: ALBUTEROL SULFATE/IPRATROPIU 3 ML SOL IH SCH ×3 (06:59→19:33)
--- NOTE | 2018-07-15 06:59 | NUR ---
RECEIVED PT ON DOCUMENTED SETTINGS, ALARMS ARE ON AND AUDIBLE, PTS TRACH PORTEX 7 IS SECURE, BS CLEAR PT IN HF ASLEEP HHN GIVEN I\L WITH 3 MG DUONEB, BMV HOB, VENT PLUGGED INTO RED OUTLET, CONT. POX IN PLACE
--- NOTE | 2018-07-15 07:10 | NUR ---
RECEIVED REPORT FROM TILLER WORKER RN. PT RESTING IN BED. RESPONSE TO STIMULI. NO EYES OPENING AT THIS TIME. SB ON MONITOR. ON TRACH TO VENT AC/VC FIO2 30% TV 500 RR 14 PEEP 5. CLEAR LUNGS SOUND. NO SOB OR ACUTE RESPIRATORY DISTRESS NOTED. ABDOMEN FIRM, ROUND AND NONTENDER. ACTIVE BOWEL SOUND. G-TUBE NOTED ON RUQ. ON FEEDING VITAL AF 1.2 AT 70 ML/HR. RESIDUAL 5 ML. PERIPHERAL LINE ON LEFT HAND 22 G. INTACT LINE. NS INFUSING AT 60 ML/HR. CONTRACTED AND DEFORMED BOTH UPPER EXTREMITIES. BLANCHABLE REDNESS ON BOTH ELBOW. FOAM DRESSING IN PLACE IN RIGHT ELBOW. INTACT DRESSING. AMPUTEE RIGHT LEG. HOB ELEVATED. OFFLOADED PRESSURE AREAS. WILL CONTINUE TO MONITOR.
[2018-07-15 07:45] LABS: MAGNESIUM 1.4 mg/dL (1.8-2.4)
[2018-07-15 08:00] VITALS: BP 116/39
[2018-07-15] MEDS: LACTOBACILLUS RHAMNOSUS GG 1 EACH CAP PO SCH (08:36)
[2018-07-15] MEDS: SUCRALFATE 1 GM TAB GT SCH ×4 (08:36→21:06)
[2018-07-15] MEDS: LEVOTHYROXINE 0.075 MG TAB GT SCH (08:36)
[2018-07-15] MEDS: LANSOPRAZOLE 30 MG CAPDR PO SCH ×2 (08:36→21:06)
[2018-07-15] MEDS: FERROUS SULFATE 300 MG/5 ML UDC GT SCH (08:37)
[2018-07-15] MEDS: DOCUSATE SODIUM 100 MG GELCAP PO SCH ×2 (08:37→21:00)
[2018-07-15] MEDS: ASCORBIC ACID 500 MG/5 ML ORASYR GT SCH (08:37)
[2018-07-15] MEDS ORDERED: INUL1CTB PO (08:45)
[2018-07-15] MEDS ORDERED: ZOS3.375I IV (08:45)
--- NOTE | 2018-07-15 08:58 | NUR ---
Pt had loose BM X2 early this morning as per television receiver analyzer RN. 0900 am colace not administered. Dr. Chavez made aware.
[2018-07-15] MEDS ORDERED: MAG SULF 2000 MG/WATER PREMIX 50 ML IV SCH (09:00)
--- NOTE | 2018-07-15 09:00 | NUR ---
CALLED [facility] AT [phone] AND ABLE TO SPEAK TO ESTHER, CROSS TIE TRAM LOADER. INQUIRED ABOUT ENT OFFICE INFORMATION. ESTHER PROVIDED ME OF DR. OSEI'S OFFICE NUMBER [phone].
--- NOTE | 2018-07-15 09:35 | NUR ---
CALLED DR. OSEI'S OFFICE TO SET UP OUT PATIENT ENT FOLLOW UP. APPOINTMENT SET UP FOR JULY 17 AT 1145AM.
[2018-07-15] MEDS ORDERED: LACTOBACILLUS RHAMNOSUS GG 1 EACH CAP PO SCH (10:00)
--- NOTE | 2018-07-15 10:08 | NUR ---
LEFT MESSAGES TO ARNIE OF AT [phone]. TRANSFER BACK TO [facility] AND E[place] OUTPATIENT FOLLOW UP ORDERS FAXED TO [phone].
--- NOTE | 2018-07-15 10:10 | NUR ---
CONTACTED LIZBETH COUTLERTRASH COLLECTOR SUPERVISOR AT [facility] [place] [phone]. REQUESTED TO FAX ORDERS TO [phone]. PATIENT WILL BE GOING TO ROOM 3C.
--- NOTE | 2018-07-15 10:46 | NUR ---
CLEANSED AND APPLIED MEDICINE TO RIGHT AKA STUMP MULTIPLE HEALED SKIN GRAFT TO ABDOMINAL AND RIGHT/LEFT HIPS AND THIGHS, GROINS AND PERINEUM, BUTTOCKS. CLEANSED AND APPLIIED MEDICINE TO RIGHT ELBOW. COVERED WITH FOAM DRESSING. REPOSITIONED. PHOTOS TAKEN. REPOSITIONED. KEPT ON COMFORTABLE POSITION. HOB ELEVATED. BED IN LOW POSITION LOCKED. CONTINUE TO MONITOR.
--- NOTE | 2018-07-15 11:06 | NUR ---
CALLED PLATFORM ARCHITECT FOR DISCHARGE PROCESS UPDATES. SAID WILL CHECK AND CALL US BACK.
--- NOTE | 2018-07-15 11:43 | NUR ---
RESTING IN BED COMFORTABLY. SPONTANEOUS EYES OPENING. CONTINUE ON SAME VENT SETTING. NO SOB OR ACUTE RESPIRATORY DISTRESS NOTED. AFEBRILE. IV SITE INTACT. HOB ELEVATED. BED IN LOW POSITION LOCKED. WILL CONTINUE TO MONITOR.
[2018-07-15] MEDS: NACL 0.9% 1,000 ML IV SCH ×2 (11:56→14:44)
[2018-07-15 12:00] VITALS: BP 143/90
--- NOTE | 2018-07-15 12:00 | NUR ---
LEFT MESSAGE AGAIN TO ARNIE TO FOLLOW UP REGARDING DC. AWAITING FOR CALL BACK.
[2018-07-15 12:10] VITALS: BP 143/90
--- NOTE | 2018-07-15 14:12 | NUR ---
[place] [facility] [phone], GAVE REPORT TO BRAXTON LINO. SHE SAID THERE IS NO ISOLATION ROOM AVAILABLE AT THIS TIME. DR. RODRÍGUEZ MADE AWARE. SAID SHE WILL TALK TO AIRCRAFT POWERPLANT REPAIRER.
--- NOTE | 2018-07-15 14:17 | NUR ---
RESTING IN BED COMFORTABLY. OPENS EYES SPONTANEOUSLY. CONTINUE ON SAME VENT SETTING. NO SOB OR ACUTE RESPIRATORY DISTRESS NOTED. IV SITE INTACT. HOB ELEVATED. BED IN LOW POSITION LOCKED. WILL CONTINUE TO MONITOR.
[2018-07-15] MEDS: MUPIROCIN CA NASAL 2% 1GM TUBE NS SCH (14:32)
[2018-07-15] MEDS: CHLORHEXADINE GLUC 2% CLOTH TP SCH (14:33)
--- NOTE | 2018-07-15 14:34 | NUR ---
LEFT A MESSAGE AGAIN TO ARNIE OF AT [phone]. AWAITING FOR CALL BACK.
--- NOTE | 2018-07-15 15:33 | NUR ---
BG ANTONIO CALLED AND STATED THAT THEY ARE STILL REVIEWING IF PATIENT CAN GO BACK TO [facility] AND TRYING TO FIND ENT DOC FOR FOLLOW UP. INFORMED HIM THAT I GOT AN APPOINTMENT FOR July AT 1145 AM. HE STATED THAT HE WILL CONSULT HIS CHIEF ENGINEER'S HELPER ARNIE REGARDING THIS AND WILL CALL ME BACK SOON HE GET ANY INFORMATION.
--- NOTE | 2018-07-15 15:58 | NUR ---
PER JAZMYN OF , OF TO TRANSFER BACK PATIENT TO [facility] AUTH #[id number]*SNF AND TRANSPORT IS [facility] AUTH#[id number]*ANC. PRIMARY RN CHAN AND CHARGE NURSE SAMSON MADE AWARE.
[2018-07-15 15:59] VITALS: BP 135/54
--- NOTE | 2018-07-15 16:18 | NUR ---
PER BARBRA OF [facility], THEY DON'T DO IMMUNOTHERAPY Addendum: 07/15/18 at 1628 by Enriqueta Jackson CM WRONG ENTRY
--- NOTE | 2018-07-15 16:23 | NUR ---
CALLED DR. GARDUNO AND NOTIFIED REGARDING THE CONSULT. PER DR. GARDUNO, HE NEEDS TO SEE PT FIRST BEFORE [place] CAN BE DISCHARGED [place] [facility] [place] CM AND CHAN NURSE DIONE MADE AWARE.
--- NOTE | 2018-07-15 16:30 | NUR ---
PER RAY OF [facility] , DR OSEI IS NOT CONTRACTED WITH THEM. HE STATED HE WILL TRY TO CONTACT DR GOODE AND DR HYDE TO SET UP APPOINTMENT. HE ALSO STATED HE WILL COORDINATE WITH [facility] REGARDING ENT CONSULTATION.
--- NOTE | 2018-07-15 18:09 | NUR ---
NO CHANGE IN CONDITION. AFEBRILE. CONTINUE ON SAME VENT SETTING. NO SOB OR ACUTE RESPIRATORY DISTRESS NOTED. IV SITE INTACT. HOB ELEVATED. BED IN LOW POSITION LOCKED. CONTINUE TO MONITOR.
--- NOTE | 2018-07-15 19:21 | NUR ---
REPORT GIVEN TO NATURAL REMEDY CONSULTANT RN FOR CONTINUITY OF CARE.
--- NOTE | 2018-07-15 19:28 | NUR ---
RECEIVED PATIENT ON CURRENT VENT SETTINGS: AC/VC 500 RATE 14 PEEP 5 FIO2 30%. PATIENT IS TRACH'D WITH A PORTEX SIZE 7 THAT IS SECURE WITH TRACH TIES. STOMA AREA IS PROTECTED WITH GAUZE. B/S: COURSE IN THE RIGHT UPPER LOBE AND CLEAR ON THE LEFT SIDE PRE AND POST INLINE HHN TX. PATIENT IS AWAKE AND QUIET. SUCTIONED PATIENT AND RECEIVED SMALL, THIN AND WHITE SECRETIONS. PATIENT HAS A GOOD COUGH/GAG REFLEX. ALARMS ARE VERIFIED. TREATMENT GIVEN INLINE WITH VENT WITH NO ADVERSE EFFECTS.
--- NOTE | 2018-07-15 19:30 | NUR ---
RECEIVED BEDSIDE REPORT FROM BRAXOTN GILES, PATIENT TRACH TO VENT SETTINGS AT FIO2 30%, VT 500, PEEP 5. O2SAT 98%, RR 14, HR 41, BP 128/40, TEMP 98.6, FLACC-0. G-TUBE IN PLACE INFUSING VITAL AF 1.2 AT 70 ML/HR, NO RESIDUES NOTED. WOUNDS ON BOTH ELBOWS, DRESSING IN PLACE, SACRAL REDNESS, LEFT LEG AMBULATION, NOTED SCROTAL EDEMA, AND POLYPS INSIDE NARES. PATIENT ON WOUND BED, IV IN RIGHT FA 22 G INFUSING NS AT 10 ML/HR. PATIENT TO HAVE CLEARANCE FROM DR GARDUNO AND CAN BE TRANSFERR[place] [facility] [place] ANTIBIOTIC ZOSYN 3.345 Q8H FOR 5 DAYS. [facility] [place] NO [place] BED AT THIS TIME. DR GARDUNO WAS CALLED ACCORDING TO DAY SHIFT NURSE, CHARGE NURSE MICHAEL LARSON.
[2018-07-15 20:00] VITALS: BP 128/40
--- NOTE | 2018-07-15 21:02 | NUR ---
HELD COLACE DUE TO PATIENT HAVING DIARRHEA
[2018-07-15] MEDS: ATORVASTATIN 20 MG TAB GT SCH (21:06)
--- NOTE | 2018-07-15 21:15 | NUR ---
ROUTINE VENT CHECK. NO CHANGES MADE. AIRWAY IS SECURE AND PATENT.
[2018-07-15] MEDS ORDERED: VANCOMYCIN PER PHARMACY MC PRN (21:45)
[2018-07-15] MEDS ORDERED: VANCOMYCIN HCL 1,500 MG in DEXTROSE 5% 250 ML IV ONE (22:00)
[2018-07-15] MEDS ORDERED: VANCOMYCIN 500 MG VIAL ONE (22:53)
[2018-07-15] MEDS ORDERED: VANCOMYCIN 1,000 MG VIAL ONE (22:53)
--- NOTE | 2018-07-15 23:12 | NUR ---
GAVE VANCOMYCIN Addendum: 07/15/18 at 2312 by Mary Holley RN DISREGARD
--- NOTE | 2018-07-15 23:13 | NUR ---
GAVE ONE DOSE 1500 MG VANCOMYCIN ACCORDING TO DR LAUREEN CHOI
[2018-07-16] VITALS: BP 126/41
--- NOTE | 2018-07-16 00:45 | NUR ---
V/S TAKEN ALL WITHIN BASELINE, FLACC-0, WILL CONTINUE TO MONITOR
[2018-07-16] MEDS: Z-GUARD PASTE TP SCH ×2 (01:17→13:04)
[2018-07-16] MEDS: HYDRAGUARD CREAM TP SCH ×2 (01:17→13:04)
--- NOTE | 2018-07-16 01:22 | NUR ---
ROUTINE VENT CHECK AND PATIENT ASSESSMENT. NO CHANGES MADE TO SETTINGS. PEAK PRESSURE CONTINUOUSLY ALARMED, SUCTIONED PATIENT 2 TIMES AND RECEIVED SMALL, THIN, WHITE SECRETIONS.
[2018-07-16 03:56] VITALS: BP 128/48
--- NOTE | 2018-07-16 04:00 | NUR ---
V/S TAKEN BP 128/48 HR 51 WILL CONTINUE TO MONITOR. SB ON TELE
[2018-07-16] MEDS: BLOOD GLUCOSE MONITORING 1 DEV DEV FS SCH ×2 (05:20→11:28)
[2018-07-16] MEDS: PIPER/TAZO 3.375GM/D5W PREMIX 50 ML IV SCH ×2 (05:20→11:31)
[2018-07-16] MEDS: CITRIC ACID/SODIUM CITRATE 30 ML UDC GT SCH ×2 (05:20→13:17)
--- NOTE | 2018-07-16 06:00 | NUR ---
DUE MEDICATIONS GIVEN WILL CONTINUE TO MONITOR
[2018-07-16 06:44] LABS: BASOPHILS % (AUTO) 0.5 % (0.0-2.0); EOSINOPHILS # (AUTO) 0.3 K/uL (0-0.4); EOSINOPHILS % (AUTO) 3.8 % (0.0-4.0); HEMATOCRIT 31.2 % (36-52); HEMOGLOBIN 10.1 g/dL (12.0-18.0); LYMPHOCYTES % (AUTO) 33.2 % (20.5-51.1); MEAN CORPUSCULAR HEMOGLOBIN 26 pg (27-31); MEAN CORPUSCULAR HGB CONC 33 g/dL (33-37); MEAN CORPUSCULAR VOLUME 80.5 fL (80-94); MONOCYTES # (AUTO) 0.6 K/uL (0.8-1.0); MONOCYTES % (AUTO) 7.2 % (1.7-9.3); NEUTROPHILS % (AUTO) 55.3 % (42.2-75.2); PLATELET COUNT (AUTO) 116 K/uL (140-450); RED BLOOD CELL COUNT(AUTO) 3.88 MIL/uL (4.20-6.10); RED CELL DISTRIBUTION WIDTH 15.7 % (11.6-13.7)
--- NOTE | 2018-07-16 07:21 | NUR ---
ENDORSED PATIENT TO DAY SHIFT NURSE, PATIENT STABLE.
[2018-07-16 07:27] LABS: ANION GAP 12.7 (8-16); CARBON DIOXIDE 25.3 mmol/L (21-32); CHLORIDE 108 mmol/L (98-107); CREATININE 0.6 mg/dL (0.7-1.3); GLUCOSE 126 mg/dL (74-106); SODIUM SERUM 143 mmol/L (136-145); UREA NITROGEN, BLOOD 15 mg/dL (7-18)
[2018-07-16 07:32] LABS: MAGNESIUM 1.6 mg/dL (1.8-2.4); PHOSPHORUS 3.1 mg/dL (2.5-4.9)
--- NOTE | 2018-07-16 07:39 | NUR ---
RECEIVED BED SIDE REPORT FROM [employer]PER[employer]AT[employer] RN. PT IN STABLE CONDITION, ON TELE WITH SB RHYTHM. ON VENT WITH FIO2 30%, VT 500 AND RR14. G TUBE SITE CLEAN AND INTACT RUNNING VITALS AF 1/2 70CC/HR, WILL CHECK RESIDUAL BEFORE AM MEDS. L HAND 20G INFILTRATED AND LEAKING, WILL RESTART NEW IV.ON CONTACT [facility] AND [facility]. DISCHARGE ORDER IN PLACE, [place] [facility] [place] [facility] CURRENTLY AVAILABLE. BED ALARM ON, WILL CONTINUE TO MONITOR
[2018-07-16] MEDS: ALBUTEROL SULFATE/IPRATROPIU 3 ML SOL IH SCH ×2 (07:52→13:59)
--- NOTE | 2018-07-16 07:52 | NUR ---
RECEIVED ON A [employer] R860 VENTILATOR PLUGGED INTO RED OUTLET TOLERATING WELL WITHOUT ADVERSE REACTIONS NOTED TO A PORTEX DCT #7 AIRWAY [id number] WITH A LORENZO TRAC TIE CUFF PRESSURE CHECKED NOTED MASIMO RADICAL-7 CONTINUOS PULSE OXIMETER AT BEDSIDE ON AND FUNCTIONING WELL LOW SATURATION ALARM SET AT 92% AMBU BAG AT HOB LOC QUIET BREATH SOUNDS RHONCHI BILATERAL GOOD EQUAL CHEST RISE DEEP TRACHEAL SUCTION FOR SMALL THICK YELLOW SECRETIONS AIRWAY PATENT
--- NOTE | 2018-07-16 07:53 | NUR ---
SATURATION 97% ON FIO2 OF 30% POST [facility] THERAPY TITRATED FIO2 TO 28% TANVI/RN'S NOTIFIED
[2018-07-16 08:00] VITALS: BP 147/44
[2018-07-16] MEDS: DOCUSATE SODIUM 100 MG GELCAP PO SCH (09:00)
[2018-07-16] MEDS: FERROUS SULFATE 300 MG/5 ML UDC GT SCH (09:09)
[2018-07-16] MEDS: LACTOBACILLUS RHAMNOSUS GG 1 EACH CAP PO SCH (09:09)
[2018-07-16] MEDS: SUCRALFATE 1 GM TAB GT SCH ×2 (09:09→13:16)
[2018-07-16] MEDS: ASCORBIC ACID 500 MG/5 ML ORASYR GT SCH (09:09)
[2018-07-16] MEDS: LEVOTHYROXINE 0.075 MG TAB GT SCH (09:10)
[2018-07-16] MEDS: LANSOPRAZOLE 30 MG CAPDR PO SCH (09:10)
--- NOTE | 2018-07-16 09:11 | NUR ---
RESTING COMFORTABLY NO EVIDENCE RESPIRATORY DISTRESS NOTED GOOD EQUAL CHEST RISE AIRWAY PATENT
--- NOTE | 2018-07-16 10:20 | NUR ---
LÓPEZ SPANGLER RN STARTED NEW IV 22G LEFT UPPER ARM, FLUSHES WELL, BLOOD RETURN SEEN, WILL CONTINUE TO MONITOR
--- NOTE | 2018-07-16 10:20 | NUR ---
PER BG MARISELA, WILL USE THE SAME AUTHORIZATION #'S FOR SNF AND TRANSPORTATION. WILL CALL ME BACK FOR ENT FOLLOW UP VISITS.
[2018-07-16] MEDS ORDERED: MAG SULF 2000 MG/WATER PREMIX 50 ML IV SCH (11:00)
--- NOTE | 2018-07-16 11:14 | NUR ---
NIXON FROM [facility] CALLED, PATIENT WILL BE GOING TO ROOM 3C UNDER THE CARE OF DR. BETTS. CHARGE NURSE LÓPEZ AND PRIMARY RN JUANITO MADE AWARE.
[2018-07-16] MEDS: POTASSIUM CHLORIDE 20% 40 MEQ/15 ML UDC GT SCH ×2 (11:23→13:16)
--- NOTE | 2018-07-16 11:30 | NUR ---
[facility] RIDE AND ZOSYN AT Y SITE. CALLED PHARMACY TO CONFIRM MED COMPATIBILITY
[2018-07-16 12:00] VITALS: BP 138/50
--- NOTE | 2018-07-16 12:15 | NUR ---
STABLE NO APPARENT SOB NOTED GOOD EQUAL CHEST RISE AIRWAY PATENT
--- NOTE | 2018-07-16 12:30 | NUR ---
CALLED LASHONDA FROM [facility] TO GIVE REPORT ON PT. ETA 1530. PT STABLE, FIO2 SETTING THE SAME. IN NO RESPIRATORY DISTRESS. WOUND DRESSING CHANGED THIS AM. FLACC 0, IN NO APPARENT PAIN. WILL CONTINUE TO MONITOR
[2018-07-16] MEDS ORDERED: VANC1PDS13 IV (12:34)
--- NOTE | 2018-07-16 13:39 | NUR ---
PER EVY OF [facility], BOAT HOIST OPERATOR WILL BE AT 1530.PRIMARY RN EDIL MADE AWARE.
--- NOTE | 2018-07-16 13:41 | NUR ---
LASHONDA CM MARKETING CONTENT SPECIALIST CONFIRMED DC PICKUP AT 1530. PT STABLE. GASTRIC RESIDUAL 30CC. GAVE 1300 MEDS
--- NOTE | 2018-07-16 13:59 | NUR ---
TOLERATING VENTILATORY SUPPORT WELL WITHOUT ANY ADVERSE REACTIONS NOTED GOOD EQUAL CHEST RISE DEEP TRACHEAL SUCTION FOR LARGE THIN TO FROTHY PALE YELLOW SECRETIONS AIRWAY PATENT
[2018-07-16 15:00] LABS: ANION GAP 11.1 (8-16); CARBON DIOXIDE 27.4 mmol/L (21-32); CHLORIDE 110 mmol/L (98-107); CREATININE 0.6 mg/dL (0.7-1.3); GLUCOSE 136 mg/dL (74-106); POTASSIUM 4.5 mmol/L (3.5-5.1); SODIUM SERUM 144 mmol/L (136-145); UREA NITROGEN, BLOOD 13 mg/dL (7-18)
--- NOTE | 2018-07-16 15:03 | NUR ---
STABLE NO INDICATIONS OF RESPIRATORY DISTRESS NOTED GOOD EQUAL CHEST RISE DEEP TRACHEAL SUCTION FOR LARGE THIN TO FROTHY YELLOW SECRETIONS AIRWAY PATENT
[2018-07-16] MEDS: MUPIROCIN CA NASAL 2% 1GM TUBE NS SCH (15:33)
[2018-07-16] MEDS: CHLORHEXADINE GLUC 2% CLOTH TP SCH (15:33)
--- NOTE | 2018-07-16 15:45 | NUR ---
PT WAS PICKED UP BY [facility] TRANSPORT. GOING TO [facility], G TUBE FLUSHED AND LOCKED, IV ON LEFT UA, 22G, SALINE LOCKED. PT LEFT WITH ALL HIS BELONGING. RT VICKI GAVE VENT REPORT TO LANGUAGE ARTS TEACHER NURSE FROM [facility]. NO S/S OF ACUTE DISTRESS.
[2018-07-16 16:00] VITALS: BP 147/55
[2018-07-16] MEDS ORDERED: VANCOMYCIN 1GM/DEXT 5% PREMIX 200 ML IV SCH (23:00)
[2018-07-17] MEDS ORDERED: FOAM DRESSING TP SCH (09:00)
--- NOTE | 2018-07-17 09:20 | NUR ---
PER RAY OF , HE WILL FOLLOW UP WITH DR. OSEI'S OFFICE REGARDING PATIENT ENT FOLLOW UP APPOINTMENT TODAY AND WILL CALL ME BACK FOR UPDATE.
--- NOTE | 2018-07-17 11:32 | NUR ---
PER RAY OF CHARLES , DR OSEI IS NOT CONTRACTED WITH THE INSURANCE AND WAS ABLE TO CANCEL THE APPOINTMENT FOR TODAY THROUGH SAMPSON AT DR. OSEI'S CLINIC. HE ALSO STATED HE WILL COORDINATE WITH [facility] REGARDING OUTPATIENT VISIT WITH ENT. HE IS STILL IN THE PROCESS OF FINDING ONE THAT IS CONTRACTED WITH THE INSURANCE.
== END 2018-07-16 15:45 | DRG 208 ==
LOC: MED 15:30 → MTU 17:25
PROVIDERS: ADMIT General Practice; ATTEND General Practice
PROC: 5A1945Z Respiratory Ventilation, 24-96 Consecutive Hours (ICD-10-PCS; principal; 2018-07-12)
DX: J69.0 Pneumonitis due to inhalation of food and vomit (principal); J96.21 Acute and chronic respiratory failure with hypoxia; N39.0 Urinary tract infection, site not specified; Z99.11 Dependence on respirator [ventilator] status; J90 Pleural effusion, not elsewhere classified; L89.152 Pressure ulcer of sacral region, stage 2; D63.8 Anemia in other chronic diseases classified elsewhere; E03.9 Hypothyroidism, unspecified; E11.51 Type 2 diabetes mellitus with diabetic peripheral angiopathy without gangrene; E78.5 Hyperlipidemia, unspecified; I10 Essential (primary) hypertension; J44.9 Chronic obstructive pulmonary disease, unspecified; K21.9 Gastro-esophageal reflux disease without esophagitis; R04.0 Epistaxis; R13.11 Dysphagia, oral phase; K59.09 Other constipation; E83.42 Hypomagnesemia; J33.9 Nasal polyp, unspecified; E87.6 Hypokalemia; Z93.0 Tracheostomy status; Z22.322 Carrier or suspected carrier of Methicillin resistant Staphylococcus aureus; Z74.01 Bed confinement status; Z89.611 Acquired absence of right leg above knee
CPT/HCPCS: 36415; 71045; 76604; 80048; 80053; 81001; 82150; 82272; 82728; 82948; 83036; 83540; 83605; 83690; 83735; 83880; 84100; 84443; 84484; 85025; 85045; 85610; 85730; 87040; 87070; 87081; 87086; 87186; 87205; 89220; 93005; 94003; 94640; 96365; 96366; 96367; 99285; C1758; J1815; J1956; J2543; J3370; J3475; J7030; J7060; J7620; Q0092

== ENCOUNTER 2018-12-08 02:02 | Inpatient (IN) | payer OTHER, MEDICAID ==
[2018-12-08] VITALS (7 sets, daily range): BP systolic 115–136; BP diastolic 43–58
[~2018-12-08] VITALS: Ht 170.2 cm; Wt 95.3 kg
[~2018-12-08 02:02] MED LIST: AMLO2.5T GT; ASCO500T45 GT; ATOR10TA GT; BISA-213 RC; CHLO1SOL1; DOCU-299 GT; FERR75LI22 GT; INSU100S45 SUBQ; INUL1CTB PO; LOV40I SUBQ; MAGN400S60 GT; MAGN400T7 GT; MIRABULK GT; MULT1SGL58 GT; NA P133E RC; OMEP20TC12 GT; SUCR1SUS8 GT; SYN.075 GT; VANC1PDS13 IV; ZOS3.375I IV; [UNRECOGNIZED DRUG - CODE] GT
[2018-12-08 03:29] LABS: BASOPHILS # (AUTO) 0.2 K/uL (0.00-0.22); BASOPHILS % (AUTO) 0.6 % (0.0-2.0); EOSINOPHILS # (AUTO) 0.1 K/uL (0-0.4); EOSINOPHILS % (AUTO) 0.4 % (0.0-4.0); HEMATOCRIT 32.1 % (36-52); HEMOGLOBIN 10.1 g/dL (12.0-18.0); LYMPHOCYTES # (AUTO) 3.2 K/uL (2.0-11.5); LYMPHOCYTES % (AUTO) 11.2 % (20.5-51.1); MEAN CORPUSCULAR HEMOGLOBIN 24 pg (27-31); MEAN CORPUSCULAR HGB CONC 31 g/dL (33-37); MEAN CORPUSCULAR VOLUME 76.2 fL (80-94); MONOCYTES # (AUTO) 1.4 K/uL (0.8-1.0); MONOCYTES % (AUTO) 4.8 % (1.7-9.3); NEUTROPHILS # (AUTO) 23.5 K/uL (1.8-7.7); PLATELET COUNT (AUTO) 232 K/uL (140-450); RED BLOOD CELL COUNT(AUTO) 4.22 MIL/uL (4.20-6.10); RED CELL DISTRIBUTION WIDTH 19.2 % (11.6-13.7)
[2018-12-08 03:54] LABS: ANION GAP 13.7 (8-16); CARBON DIOXIDE 26.8 mmol/L (21-32); CHLORIDE 99 mmol/L (98-107); CREATININE 0.8 mg/dL (0.7-1.3); GLUCOSE 197 mg/dL (74-106); POTASSIUM 4.5 mmol/L (3.5-5.1); SODIUM SERUM 135 mmol/L (136-145); UREA NITROGEN, BLOOD 36 mg/dL (7-18)
[2018-12-08 04:09] LABS: WHITE BLOOD COUNT (AUTO) 28.4 K/uL (4.8-10.8)
[2018-12-08] MEDS ORDERED: NACL 0.9% 1,000 ML IV ONE ×2 (04:10→06:25)
[2018-12-08] MEDS ORDERED: PIPERACILLIN/TAZOBACTAM 3.375 GM in DEXTROSE 5% 50 ML IV ONE (05:50)
[2018-12-08] MEDS ORDERED: VANCOMYCIN 1,000 MG in DEXTROSE 5% 250 ML IV ONE (05:50)
[2018-12-08] MEDS ORDERED: PIPERACILLIN/TAZOBACTAM 3.375 GM VIAL IV ONE (06:02)
[2018-12-08] MEDS ORDERED: LORazepam 2 MG/ML VIAL IM/IVP PRN (06:35)
[2018-12-08] MEDS ORDERED: MORPHINE SULFATE 2 MG/ML SYR IVP PRN (06:35)
[2018-12-08] MEDS ORDERED: HYDROcodone/APAP 5/325 MG 1 TAB TAB PO PRN (06:35)
[2018-12-08] MEDS ORDERED: ACETAMINOPHEN 325 MG TAB PO PRN (06:35)
[2018-12-08] MEDS ORDERED: VANCOMYCIN 1,000 MG VIAL ONE ×2 (06:58→21:00)
[2018-12-08 07:26] LABS: APPEARANCE,URINE CLEAR (CLEAR); BILIRUBIN,URINE NEGATIVE (NEGATIVE); BLOOD, URINE NEGATIVE (NEGATIVE); COLOR,URINE YELLOW (YELLOW); LEUKOCYTE ESTERASE ,URINE NEGATIVE (NEGATIVE); NITRITE, URINE NEGATIVE (NEGATIVE); UGLUCOSE NEGATIVE (NEGATIVE)
[2018-12-08 07:33] LABS: PROTHROMBIN TIME 9.8 secs (10.8-13.4)
[2018-12-08 08:55] LABS: MAGNESIUM 1.7 mg/dL (1.8-2.4); PHOSPHORUS 3.6 mg/dL (2.5-4.9); THYROID STIMULATING HORMONE 1.56 uIU/mL (0.34-3.74)
[2018-12-08] MEDS ORDERED: MAGNESIUM OXIDE 400 MG TAB GT SCH (09:30)
[2018-12-08] MEDS ORDERED: LACTOBACILLUS RHAMNOSUS GG 1 EACH CAP GT SCH (09:30)
[2018-12-08] MEDS: NACL 0.9% 1,000 ML IV SCH ×2 (09:57→18:45)
[2018-12-08] MEDS ORDERED: SODIUM FERRIC GLUCONATE 125 MG in NACL 0.9% 100 ML IV SCH (10:00)
[2018-12-08] MEDS: PIPERACILLIN/TAZOBACTAM 3.375 GM in DEXTROSE 5% 50 ML IV SCH ×3 (11:31→23:39)
[2018-12-08] MEDS ORDERED: VANCOMYCIN PER PHARMACY MC PRN (12:50)
[2018-12-08] MEDS ORDERED: POLYETHYLENE GLYCOL 17 GM/PKT GT PRN (12:50)
[2018-12-08] MEDS ORDERED: BISACODYL 10 MG SUPP RC PRN (12:50)
[2018-12-08] MEDS ORDERED: MAGNESIUM HYDROXIDE 2400 MG/30 ML UDC GT PRN (12:50)
[2018-12-08] MEDS ORDERED: SODIUM PHOSPHATE 118 ML ENEM RC PRN (12:50)
[2018-12-08] MEDS ORDERED: DEXTROSE 50% 50 ML SYR IVP PRN (13:05)
[2018-12-08] MEDS ORDERED: LACTULOSE 20 GM/30 ML UDC GT SCH (13:30)
[2018-12-08] MEDS: CITRIC ACID/SODIUM CITRATE 30 ML UDC GT SCH ×2 (14:29→21:08)
[2018-12-08 14:30] LABS: ALBUMIN 2.7 g/dL (3.4-5.0); BILIRUBIN,DIRECT 0.1 mg/dL (0.0-0.3); TOTAL BILIRUBIN 0.3 mg/dL (0.0-1.0)
[2018-12-08] MEDS: BLOOD GLUCOSE MONITORING 1 DEV DEV FS SCH ×2 (16:24→21:22)
[2018-12-08] MEDS: SUCRALFATE 1 GM TAB GT SCH ×2 (16:48→21:07)
[2018-12-08] MEDS ORDERED: VANCOMYCIN 1,000 MG in DEXTROSE 5% 250 ML IV SCH (20:00)
[2018-12-08] MEDS ORDERED: ASCORBIC ACID 500 MG TAB PO SCH (21:00)
[2018-12-08] MEDS: FERROUS SULFATE 300 MG/5 ML UDC GT SCH (21:07)
[2018-12-08] MEDS: DOCUSATE 100 MG/10 ML UDC GT SCH (21:07)
[2018-12-08] MEDS: INSULIN LISPRO SLIDING SCALE 100 UNITS/ML VIAL SUBQ PRN (21:23)
[2018-12-09] MEDS: NACL 0.9% 1,000 ML IV SCH ×3 (02:09→20:24)
[2018-12-09 04:25] VITALS: BP 122/41
[2018-12-09] MEDS: CITRIC ACID/SODIUM CITRATE 30 ML UDC GT SCH ×3 (05:06→20:46)
[2018-12-09] MEDS: PIPERACILLIN/TAZOBACTAM 3.375 GM in DEXTROSE 5% 50 ML IV SCH ×3 (05:36→17:08)
[2018-12-09] MEDS: LEVOTHYROXINE 0.075 MG TAB GT SCH (05:38)
[2018-12-09] MEDS: BLOOD GLUCOSE MONITORING 1 DEV DEV FS SCH ×4 (05:48→20:46)
[2018-12-09 07:45] VITALS: BP 136/56
[2018-12-09 08:01] LABS: BASOPHILS % (AUTO) 0.3 % (0.0-2.0); EOSINOPHILS # (AUTO) 0.2 K/uL (0-0.4); EOSINOPHILS % (AUTO) 1.4 % (0.0-4.0); HEMOGLOBIN 8.8 g/dL (12.0-18.0); LYMPHOCYTES # (AUTO) 2.4 K/uL (2.0-11.5); LYMPHOCYTES % (AUTO) 14.4 % (20.5-51.1); MEAN CORPUSCULAR HEMOGLOBIN 24 pg (27-31); MEAN CORPUSCULAR HGB CONC 31 g/dL (33-37); MEAN CORPUSCULAR VOLUME 76.9 fL (80-94); MONOCYTES % (AUTO) 6.1 % (1.7-9.3); NEUTROPHILS % (AUTO) 77.8 % (42.2-75.2); PLATELET COUNT (AUTO) 210 K/uL (140-450); RED BLOOD CELL COUNT(AUTO) 3.77 MIL/uL (4.20-6.10); WHITE BLOOD COUNT (AUTO) 16.7 K/uL (4.8-10.8)
[2018-12-09 08:37] LABS: CARBON DIOXIDE 29.2 mmol/L (21-32); CHLORIDE 104 mmol/L (98-107); CREATININE 0.7 mg/dL (0.7-1.3); GLUCOSE 177 mg/dL (74-106); POTASSIUM 3.2 mmol/L (3.5-5.1); SODIUM SERUM 140 mmol/L (136-145); UREA NITROGEN, BLOOD 21 mg/dL (7-18)
[2018-12-09 08:46] LABS: CHOL/HDL RATIO 3.8 (1-4.5); MAGNESIUM 1.7 mg/dL (1.8-2.4); PHOSPHORUS 3.3 mg/dL (2.5-4.9)
[2018-12-09 09:06] LABS: FERRITIN 426 ng/mL (30-400)
[2018-12-09] MEDS: MULTIVITAMIN 1 TAB PO SCH (09:42)
[2018-12-09] MEDS: SUCRALFATE 1 GM TAB GT SCH ×4 (09:42→20:46)
[2018-12-09] MEDS: amLODIPine 5 MG TAB GT SCH (09:43)
[2018-12-09] MEDS: PANTOPRAZOLE 40 MG INJ VIAL IVP SCH (09:44)
[2018-12-09] MEDS: FERROUS SULFATE 300 MG/5 ML UDC GT SCH ×2 (09:44→20:46)
[2018-12-09] MEDS: DOCUSATE 100 MG/10 ML UDC GT SCH ×2 (09:44→20:46)
[2018-12-09] MEDS: LACTOBACILLUS RHAMNOSUS GG 1 EACH CAP GT SCH (09:44)
[2018-12-09] MEDS: ENOXAPARIN 40 MG/0.4 ML SYR SUBQ SCH (09:56)
[2018-12-09] MEDS: ASCORBIC ACID 500 MG TAB GT SCH (10:06)
[2018-12-09] MEDS: VANCOMYCIN 1,250 MG in DEXTROSE 5% 250 ML IV SCH ×2 (10:14→21:30)
[2018-12-09] MEDS ORDERED: POTASSIUM CHLORIDE 20% 40 MEQ/15 ML UDC GT SCH (11:00)
[2018-12-09] MEDS ORDERED: MAGNESIUM OXIDE 400 MG TAB GT SCH (11:00)
[2018-12-09] MEDS: MUPIROCIN CA NASAL 2% 1GM TUBE NS SCH (11:23)
[2018-12-09] MEDS: INSULIN LISPRO SLIDING SCALE 100 UNITS/ML VIAL SUBQ PRN (11:37)
[2018-12-09] MEDS: CHLORHEXADINE GLUC 2% CLOTH TP SCH (11:42)
[2018-12-09 12:00] VITALS: BP 116/52
[2018-12-09 12:07] LABS: FOLIC ACID > 20.00 ng/mL (>3.0)
[2018-12-09 12:15] LABS: TRANSFERRIN 174 mg/dL (200-370)
[2018-12-09] MEDS ORDERED: SODIUM FERRIC GLUCONATE 125 MG in NACL 0.9% 100 ML IV SCH (13:00)
[2018-12-09 16:00] VITALS: BP 130/59
[2018-12-09 17:09] LABS: BASOPHILS % (AUTO) 0.2 % (0.0-2.0); EOSINOPHILS # (AUTO) 0.1 K/uL (0-0.4); EOSINOPHILS % (AUTO) 0.8 % (0.0-4.0); HEMATOCRIT 29.5 % (36-52); HEMOGLOBIN 9.1 g/dL (12.0-18.0); LYMPHOCYTES % (AUTO) 18.1 % (20.5-51.1); MEAN CORPUSCULAR HEMOGLOBIN 24 pg (27-31); MEAN CORPUSCULAR HGB CONC 31 g/dL (33-37); MEAN CORPUSCULAR VOLUME 77.1 fL (80-94); MONOCYTES # (AUTO) 1.1 K/uL (0.8-1.0); MONOCYTES % (AUTO) 6.5 % (1.7-9.3); NEUTROPHILS # (AUTO) 12.3 K/uL (1.8-7.7); NEUTROPHILS % (AUTO) 74.4 % (42.2-75.2); PLATELET COUNT (AUTO) 199 K/uL (140-450); RED BLOOD CELL COUNT(AUTO) 3.82 MIL/uL (4.20-6.10); RED CELL DISTRIBUTION WIDTH 18.8 % (11.6-13.7); WHITE BLOOD COUNT (AUTO) 16.6 K/uL (4.8-10.8)
[2018-12-09 19:51] VITALS: BP 136/42
[2018-12-10] MEDS: NACL 0.9% 1,000 ML IV SCH ×2 (00:28→18:01)
[2018-12-10] MEDS: PIPERACILLIN/TAZOBACTAM 3.375 GM in DEXTROSE 5% 50 ML IV SCH ×5 (00:28→23:24)
[2018-12-10 00:30] VITALS: BP 132/43
[2018-12-10 03:45] VITALS: BP 131/40
[2018-12-10] MEDS: CITRIC ACID/SODIUM CITRATE 30 ML UDC GT SCH ×3 (05:21→20:59)
[2018-12-10] MEDS: BLOOD GLUCOSE MONITORING 1 DEV DEV FS SCH ×4 (05:46→20:44)
[2018-12-10] MEDS: LEVOTHYROXINE 0.075 MG TAB GT SCH (05:46)
[2018-12-10 06:49] LABS: BASOPHILS # (AUTO) 0.1 K/uL (0.00-0.22); BASOPHILS % (AUTO) 0.4 % (0.0-2.0); EOSINOPHILS # (AUTO) 0.3 K/uL (0-0.4); EOSINOPHILS % (AUTO) 2.1 % (0.0-4.0); HEMATOCRIT 27.6 % (36-52); HEMOGLOBIN 8.5 g/dL (12.0-18.0); LYMPHOCYTES # (AUTO) 3.2 K/uL (2.0-11.5); LYMPHOCYTES % (AUTO) 19.9 % (20.5-51.1); MEAN CORPUSCULAR HEMOGLOBIN 24 pg (27-31); MEAN CORPUSCULAR HGB CONC 31 g/dL (33-37); MEAN CORPUSCULAR VOLUME 76.9 fL (80-94); MONOCYTES # (AUTO) 1.3 K/uL (0.8-1.0); MONOCYTES % (AUTO) 8.3 % (1.7-9.3); NEUTROPHILS # (AUTO) 11.2 K/uL (1.8-7.7); NEUTROPHILS % (AUTO) 69.3 % (42.2-75.2); PLATELET COUNT (AUTO) 206 K/uL (140-450); RED BLOOD CELL COUNT(AUTO) 3.59 MIL/uL (4.20-6.10); RED CELL DISTRIBUTION WIDTH 18.8 % (11.6-13.7); WHITE BLOOD COUNT (AUTO) 16.1 K/uL (4.8-10.8)
[2018-12-10 07:41] LABS: ANION GAP 14.8 (8-16); CARBON DIOXIDE 25.5 mmol/L (21-32); CHLORIDE 106 mmol/L (98-107); GLUCOSE 141 mg/dL (74-106); POTASSIUM 3.3 mmol/L (3.5-5.1); SODIUM SERUM 143 mmol/L (136-145)
[2018-12-10 07:42] LABS: CREATININE 1.1 mg/dL (0.7-1.3); UREA NITROGEN, BLOOD 21 mg/dL (7-18)
[2018-12-10 08:00] VITALS: BP 155/67
[2018-12-10] MEDS: DOCUSATE 100 MG/10 ML UDC GT SCH ×2 (09:22→20:45)
[2018-12-10] MEDS: ASCORBIC ACID 500 MG TAB GT SCH (09:22)
[2018-12-10] MEDS: SUCRALFATE 1 GM TAB GT SCH ×4 (09:22→20:45)
[2018-12-10] MEDS: MULTIVITAMIN 1 TAB PO SCH (09:22)
[2018-12-10] MEDS: FERROUS SULFATE 300 MG/5 ML UDC GT SCH ×2 (09:22→20:45)
[2018-12-10] MEDS: amLODIPine 5 MG TAB GT SCH (09:23)
[2018-12-10] MEDS: LACTOBACILLUS RHAMNOSUS GG 1 EACH CAP GT SCH (09:23)
[2018-12-10] MEDS: PANTOPRAZOLE 40 MG INJ VIAL IVP SCH (09:23)
[2018-12-10] MEDS: ENOXAPARIN 40 MG/0.4 ML SYR SUBQ SCH (09:24)
[2018-12-10 09:59] LABS: MAGNESIUM 1.7 mg/dL (1.8-2.4); PHOSPHORUS 3.2 mg/dL (2.5-4.9)
[2018-12-10] MEDS: CHLORHEXADINE GLUC 2% CLOTH TP SCH (11:00)
[2018-12-10 12:00] VITALS: BP 147/64
[2018-12-10] MEDS ORDERED: MAGNESIUM OXIDE 400 MG TAB GT SCH (12:00)
[2018-12-10] MEDS ORDERED: POTASSIUM CHLORIDE 20% 40 MEQ/15 ML UDC GT SCH (12:00)
[2018-12-10] MEDS: MUPIROCIN CA NASAL 2% 1GM TUBE NS SCH (12:16)
[2018-12-10] MEDS: INSULIN LISPRO SLIDING SCALE 100 UNITS/ML VIAL SUBQ PRN ×2 (12:25→20:54)
[2018-12-10] MEDS: Z-GUARD PASTE TP SCH (13:00)
[2018-12-10] MEDS: GAUZE TP SCH (13:00)
[2018-12-10 16:00] VITALS: BP 151/66
[2018-12-10 20:00] VITALS: BP 132/68
[2018-12-10] MEDS ORDERED: CITRIC ACID/SODIUM CITRATE 30 ML UDC ONE (20:53)
[2018-12-11] VITALS: BP 150/64
[2018-12-11] MEDS: NACL 0.9% 1,000 ML IV SCH (03:39)
[2018-12-11] MEDS ORDERED: CITRIC ACID/SODIUM CITRATE 30 ML UDC ONE (03:59)
[2018-12-11 04:00] VITALS: BP 155/62
[2018-12-11] MEDS: CITRIC ACID/SODIUM CITRATE 30 ML UDC GT SCH ×3 (05:33→20:16)
[2018-12-11] MEDS: PIPERACILLIN/TAZOBACTAM 3.375 GM in DEXTROSE 5% 50 ML IV SCH ×3 (05:33→20:15)
[2018-12-11] MEDS: LEVOTHYROXINE 0.075 MG TAB GT SCH (05:33)
[2018-12-11] MEDS: BLOOD GLUCOSE MONITORING 1 DEV DEV FS SCH ×4 (06:11→20:42)
[2018-12-11 06:43] LABS: BASOPHILS # (AUTO) 0.1 K/uL (0.00-0.22); BASOPHILS % (AUTO) 0.4 % (0.0-2.0); EOSINOPHILS # (AUTO) 0.2 K/uL (0-0.4); EOSINOPHILS % (AUTO) 1.2 % (0.0-4.0); HEMATOCRIT 26.3 % (36-52); HEMOGLOBIN 8.2 g/dL (12.0-18.0); LYMPHOCYTES # (AUTO) 3.1 K/uL (2.0-11.5); LYMPHOCYTES % (AUTO) 22.6 % (20.5-51.1); MEAN CORPUSCULAR HEMOGLOBIN 24 pg (27-31); MEAN CORPUSCULAR HGB CONC 31 g/dL (33-37); MEAN CORPUSCULAR VOLUME 76.3 fL (80-94); MONOCYTES # (AUTO) 1.3 K/uL (0.8-1.0); MONOCYTES % (AUTO) 9.6 % (1.7-9.3); NEUTROPHILS # (AUTO) 9.2 K/uL (1.8-7.7); NEUTROPHILS % (AUTO) 66.2 % (42.2-75.2); PLATELET COUNT (AUTO) 200 K/uL (140-450); RED BLOOD CELL COUNT(AUTO) 3.45 MIL/uL (4.20-6.10); RED CELL DISTRIBUTION WIDTH 19.1 % (11.6-13.7); WHITE BLOOD COUNT (AUTO) 13.9 K/uL (4.8-10.8)
[2018-12-11 07:46] LABS: ANION GAP 15.3 (8-16); CARBON DIOXIDE 23.9 mmol/L (21-32); CHLORIDE 110 mmol/L (98-107); CREATININE 2.1 mg/dL (0.7-1.3); GLUCOSE 138 mg/dL (74-106); POTASSIUM 3.2 mmol/L (3.5-5.1); SODIUM SERUM 146 mmol/L (136-145); UREA NITROGEN, BLOOD 28 mg/dL (7-18)
[2018-12-11 07:51] LABS: MAGNESIUM 1.7 mg/dL (1.8-2.4); PHOSPHORUS 3.2 mg/dL (2.5-4.9)
[2018-12-11 08:00] VITALS: BP 156/64
[2018-12-11] MEDS ORDERED: NACL 0.45% 1,000 ML IV SCH (10:20)
[2018-12-11] MEDS ORDERED: MAGNESIUM OXIDE 400 MG TAB GT SCH (10:30)
[2018-12-11] MEDS: FERROUS SULFATE 300 MG/5 ML UDC GT SCH ×2 (10:34→20:16)
[2018-12-11] MEDS: DOCUSATE 100 MG/10 ML UDC GT SCH ×2 (10:34→20:16)
[2018-12-11] MEDS: PANTOPRAZOLE 40 MG INJ VIAL IVP SCH (10:34)
[2018-12-11] MEDS: ASCORBIC ACID 500 MG TAB GT SCH (10:35)
[2018-12-11] MEDS: MULTIVITAMIN 1 TAB PO SCH (10:35)
[2018-12-11] MEDS: SUCRALFATE 1 GM TAB GT SCH ×4 (10:35→20:16)
[2018-12-11] MEDS: LACTOBACILLUS RHAMNOSUS GG 1 EACH CAP GT SCH (10:35)
[2018-12-11] MEDS: amLODIPine 5 MG TAB GT SCH (10:35)
[2018-12-11] MEDS: ENOXAPARIN 40 MG/0.4 ML SYR SUBQ SCH (10:46)
[2018-12-11] MEDS ORDERED: POTASSIUM CHLORIDE 40 MEQ, LIDOCAINE MPF 1% 25 MG in NACL 0.9% 250 ML IV SCH (11:00)
[2018-12-11] MEDS: MUPIROCIN CA NASAL 2% 1GM TUBE NS SCH (11:35)
[2018-12-11] MEDS: CHLORHEXADINE GLUC 2% CLOTH TP SCH (11:35)
[2018-12-11 12:00] VITALS: BP 152/66
[2018-12-11 13:14] LABS: BASOPHILS % (AUTO) 0.3 % (0.0-2.0); EOSINOPHILS # (AUTO) 0.1 K/uL (0-0.4); EOSINOPHILS % (AUTO) 0.9 % (0.0-4.0); HEMATOCRIT 26.2 % (36-52); HEMOGLOBIN 8.2 g/dL (12.0-18.0); LYMPHOCYTES # (AUTO) 2.8 K/uL (2.0-11.5); LYMPHOCYTES % (AUTO) 19.4 % (20.5-51.1); MEAN CORPUSCULAR HEMOGLOBIN 24 pg (27-31); MEAN CORPUSCULAR HGB CONC 31 g/dL (33-37); MEAN CORPUSCULAR VOLUME 77.1 fL (80-94); MONOCYTES # (AUTO) 1.1 K/uL (0.8-1.0); MONOCYTES % (AUTO) 7.4 % (1.7-9.3); NEUTROPHILS # (AUTO) 10.4 K/uL (1.8-7.7); PLATELET COUNT (AUTO) 191 K/uL (140-450); RED BLOOD CELL COUNT(AUTO) 3.39 MIL/uL (4.20-6.10); RED CELL DISTRIBUTION WIDTH 18.9 % (11.6-13.7); WHITE BLOOD COUNT (AUTO) 14.5 K/uL (4.8-10.8)
[2018-12-11] MEDS: Z-GUARD PASTE TP SCH (13:26)
[2018-12-11] MEDS: GAUZE TP SCH (13:26)
[2018-12-11 15:01] LABS: ANION GAP 19.5 (8-16); ASPARTATE AMINOTRANSFERASE 24 U/L (15-37); CARBON DIOXIDE 18.7 mmol/L (21-32); CHLORIDE 111 mmol/L (98-107); CREATININE 2.4 mg/dL (0.7-1.3); GLUCOSE 259 mg/dL (74-106); POTASSIUM 3.2 mmol/L (3.5-5.1); SODIUM SERUM 146 mmol/L (136-145); TOTAL BILIRUBIN 0.3 mg/dL (0.0-1.0); UREA NITROGEN, BLOOD 32 mg/dL (7-18)
[2018-12-11] MEDS ORDERED: NACL 0.9% 1,000 ML IV SCH (15:30)
[2018-12-11] MEDS ORDERED: VANCOMYCIN PER PHARMACY MC PRN (15:35)
[2018-12-11 16:00] VITALS: BP 149/66
[2018-12-11] MEDS: POTASSIUM CHL 20 MEQ/ 1/2 NS 1,000 ML IV SCH (16:06)
[2018-12-11] MEDS ORDERED: metroNIDAZOLE 500 MG TAB GT SCH (17:43)
[2018-12-11 20:00] VITALS: BP 155/58
[2018-12-11] MEDS: INSULIN LISPRO SLIDING SCALE 100 UNITS/ML VIAL SUBQ PRN (20:43)
[2018-12-11 23:32] LABS: APPEARANCE,URINE CLEAR (CLEAR); BILIRUBIN,URINE NEGATIVE (NEGATIVE); BLOOD, URINE 1+ (NEGATIVE); COLOR,URINE YELLOW (YELLOW); LEUKOCYTE ESTERASE ,URINE 1+ (NEGATIVE); NITRITE, URINE NEGATIVE (NEGATIVE); PH,URINE 6.5 (5.0-9.0); UGLUCOSE NEGATIVE (NEGATIVE)
[2018-12-11 23:53] LABS: RBC,URINE 11-20 (MOD) /HPF (0-5)
[2018-12-12] VITALS: BP 154/63
[2018-12-12] MEDS: POTASSIUM CHL 20 MEQ/ 1/2 NS 1,000 ML IV SCH ×3 (00:14→16:40)
[2018-12-12 04:00] VITALS: BP 166/49
[2018-12-12] MEDS: CITRIC ACID/SODIUM CITRATE 30 ML UDC GT SCH ×3 (04:26→20:42)
[2018-12-12] MEDS: PIPERACILLIN/TAZOBACTAM 3.375 GM in DEXTROSE 5% 50 ML IV SCH ×3 (04:26→20:43)
[2018-12-12] MEDS: amLODIPine 5 MG TAB GT SCH (04:35)
[2018-12-12] MEDS: LEVOTHYROXINE 0.075 MG TAB GT SCH (05:44)
[2018-12-12] MEDS: BLOOD GLUCOSE MONITORING 1 DEV DEV FS SCH ×4 (05:45→20:58)
[2018-12-12] MEDS: INSULIN LISPRO SLIDING SCALE 100 UNITS/ML VIAL SUBQ PRN ×2 (05:45→16:39)
[2018-12-12 06:59] LABS: ANION GAP 15.7 (8-16); CARBON DIOXIDE 21.9 mmol/L (21-32); CHLORIDE 111 mmol/L (98-107); CREATININE 2.1 mg/dL (0.7-1.3); GLUCOSE 221 mg/dL (74-106); POTASSIUM 3.6 mmol/L (3.5-5.1); SODIUM SERUM 145 mmol/L (136-145); UREA NITROGEN, BLOOD 31 mg/dL (7-18)
[2018-12-12 07:04] LABS: BASOPHILS # (AUTO) 0.1 K/uL (0.00-0.22); BASOPHILS % (AUTO) 0.5 % (0.0-2.0); EOSINOPHILS # (AUTO) 0.4 K/uL (0-0.4); EOSINOPHILS % (AUTO) 2.4 % (0.0-4.0); HEMATOCRIT 23.8 % (36-52); HEMOGLOBIN 7.4 g/dL (12.0-18.0); LYMPHOCYTES # (AUTO) 3.6 K/uL (2.0-11.5); LYMPHOCYTES % (AUTO) 24.4 % (20.5-51.1); MEAN CORPUSCULAR HEMOGLOBIN 24 pg (27-31); MEAN CORPUSCULAR HGB CONC 31 g/dL (33-37); MEAN CORPUSCULAR VOLUME 77.3 fL (80-94); MONOCYTES # (AUTO) 1.2 K/uL (0.8-1.0); MONOCYTES % (AUTO) 7.9 % (1.7-9.3); NEUTROPHILS # (AUTO) 9.5 K/uL (1.8-7.7); NEUTROPHILS % (AUTO) 64.8 % (42.2-75.2); PLATELET COUNT (AUTO) 170 K/uL (140-450); RED BLOOD CELL COUNT(AUTO) 3.08 MIL/uL (4.20-6.10); RED CELL DISTRIBUTION WIDTH 18.6 % (11.6-13.7); WHITE BLOOD COUNT (AUTO) 14.7 K/uL (4.8-10.8)
[2018-12-12 07:10] LABS: MAGNESIUM 1.4 mg/dL (1.8-2.4); PHOSPHORUS 1.7 mg/dL (2.5-4.9)
[2018-12-12 08:00] VITALS: BP 151/49
[2018-12-12 09:30] LABS: CHLORIDE,URINE RANDOM 87 mmol/L (110-250); CREATININE,URINE RANDOM 48 mg/dL (30-125); URINE SODIUM, RANDOM 99 mmol/l (40-220)
[2018-12-12] MEDS: LACTOBACILLUS RHAMNOSUS GG 1 EACH CAP GT SCH (09:38)
[2018-12-12] MEDS: SUCRALFATE 1 GM TAB GT SCH ×4 (09:38→20:43)
[2018-12-12] MEDS: DOCUSATE 100 MG/10 ML UDC GT SCH ×2 (09:38→20:42)
[2018-12-12] MEDS: FERROUS SULFATE 300 MG/5 ML UDC GT SCH ×2 (09:38→20:42)
[2018-12-12] MEDS: MULTIVITAMIN 1 TAB PO SCH (09:39)
[2018-12-12] MEDS: ASCORBIC ACID 500 MG TAB GT SCH (09:39)
[2018-12-12] MEDS: metroNIDAZOLE 500 MG TAB GT SCH ×3 (09:39→16:42)
[2018-12-12] MEDS: CLINICAL MONITORING MC SCH (09:42)
[2018-12-12] MEDS: MUPIROCIN CA NASAL 2% 1GM TUBE NS SCH (11:53)
[2018-12-12] MEDS: CHLORHEXADINE GLUC 2% CLOTH TP SCH (11:53)
[2018-12-12 12:00] VITALS: BP 142/51
[2018-12-12] MEDS: GAUZE TP SCH (13:52)
[2018-12-12] MEDS: Z-GUARD PASTE TP SCH (13:53)
[2018-12-12] MEDS ORDERED: MAG SULF 2000 MG/WATER PREMIX 50 ML IV SCH (15:00)
[2018-12-12] MEDS ORDERED: SODIUM PHOS / POTASSIUM PHOS 1 PKT PDR PO SCH (15:00)
[2018-12-12 16:00] VITALS: BP 149/52
[2018-12-12 20:00] VITALS: BP 142/50
[2018-12-13] VITALS: BP 145/89
[2018-12-13] MEDS: POTASSIUM CHL 20 MEQ/ 1/2 NS 1,000 ML IV SCH ×3 (01:50→17:02)
[2018-12-13 04:00] VITALS: BP 155/54
[2018-12-13] MEDS: CITRIC ACID/SODIUM CITRATE 30 ML UDC GT SCH ×3 (05:28→20:10)
[2018-12-13] MEDS: PIPERACILLIN/TAZOBACTAM 3.375 GM in DEXTROSE 5% 50 ML IV SCH ×3 (05:28→20:10)
[2018-12-13] MEDS: LEVOTHYROXINE 0.075 MG TAB GT SCH (05:39)
[2018-12-13] MEDS: BLOOD GLUCOSE MONITORING 1 DEV DEV FS SCH ×4 (06:10→20:23)
[2018-12-13] MEDS: INSULIN LISPRO SLIDING SCALE 100 UNITS/ML VIAL SUBQ PRN ×2 (06:10→20:23)
[2018-12-13 07:31] LABS: ANION GAP 14.3 (8-16); CARBON DIOXIDE 23.6 mmol/L (21-32); CHLORIDE 109 mmol/L (98-107); CREATININE 1.9 mg/dL (0.7-1.3); GLUCOSE 170 mg/dL (74-106); POTASSIUM 3.9 mmol/L (3.5-5.1); SODIUM SERUM 143 mmol/L (136-145); UREA NITROGEN, BLOOD 32 mg/dL (7-18)
[2018-12-13 07:32] LABS: PHOSPHORUS 2.3 mg/dL (2.5-4.9)
[2018-12-13 08:00] VITALS: BP 163/50
[2018-12-13 09:20] LABS: HEMATOCRIT 23.4 % (36-52); HEMOGLOBIN 7.3 g/dL (12.0-18.0); MEAN CORPUSCULAR HEMOGLOBIN 24 pg (27-31); MEAN CORPUSCULAR HGB CONC 31 g/dL (33-37); PLATELET COUNT (AUTO) 122 K/uL (140-450); RED BLOOD CELL COUNT(AUTO) 3.04 MIL/uL (4.20-6.10); RED CELL DISTRIBUTION WIDTH 18.8 % (11.6-13.7); WHITE BLOOD COUNT (AUTO) 11.9 K/uL (4.8-10.8)
[2018-12-13] MEDS: LACTOBACILLUS RHAMNOSUS GG 1 EACH CAP GT SCH (09:46)
[2018-12-13] MEDS: amLODIPine 5 MG TAB GT SCH (09:46)
[2018-12-13] MEDS: metroNIDAZOLE 500 MG TAB GT SCH ×3 (09:47→17:01)
[2018-12-13] MEDS: ASCORBIC ACID 500 MG TAB GT SCH (09:47)
[2018-12-13] MEDS: SUCRALFATE 1 GM TAB GT SCH ×4 (09:47→20:11)
[2018-12-13] MEDS: MULTIVITAMIN 1 TAB PO SCH (09:47)
[2018-12-13] MEDS: DOCUSATE 100 MG/10 ML UDC GT SCH ×2 (09:47→20:10)
[2018-12-13] MEDS: FERROUS SULFATE 300 MG/5 ML UDC GT SCH ×2 (09:47→20:10)
[2018-12-13] MEDS: CLINICAL MONITORING MC SCH (09:49)
[2018-12-13] MEDS: MUPIROCIN CA NASAL 2% 1GM TUBE NS SCH (10:14)
[2018-12-13] MEDS: CHLORHEXADINE GLUC 2% CLOTH TP SCH (10:14)
[2018-12-13 11:40] LABS: EOSINOPHILS % (MANUAL) 4 % (0-4); LYMPHOCYTES % (MANUAL) 23 % (20-46); MONOCYTES % (MANUAL) 8 % (5-12)
[2018-12-13 12:00] VITALS: BP 155/49
[2018-12-13] MEDS: Z-GUARD PASTE TP SCH (13:30)
[2018-12-13] MEDS: GAUZE TP SCH (13:31)
[2018-12-13 16:00] VITALS: BP 149/45
[2018-12-13 20:00] VITALS: BP 153/54
[2018-12-14] VITALS: BP 141/50
[2018-12-14] MEDS: POTASSIUM CHL 20 MEQ/ 1/2 NS 1,000 ML IV SCH ×3 (03:00→17:46)
[2018-12-14 04:00] VITALS: BP 145/57
[2018-12-14] MEDS: PIPERACILLIN/TAZOBACTAM 3.375 GM in DEXTROSE 5% 50 ML IV SCH ×3 (05:49→20:02)
[2018-12-14] MEDS: LEVOTHYROXINE 0.075 MG TAB GT SCH (05:49)
[2018-12-14] MEDS: CITRIC ACID/SODIUM CITRATE 30 ML UDC GT SCH ×3 (05:50→20:04)
[2018-12-14] MEDS: BLOOD GLUCOSE MONITORING 1 DEV DEV FS SCH ×4 (06:17→20:12)
[2018-12-14 06:58] LABS: HEMATOCRIT 24.3 % (36-52); HEMOGLOBIN 7.6 g/dL (12.0-18.0); MEAN CORPUSCULAR HEMOGLOBIN 24 pg (27-31); MEAN CORPUSCULAR HGB CONC 31 g/dL (33-37); MEAN CORPUSCULAR VOLUME 76.8 fL (80-94); PLATELET COUNT (AUTO) 172 K/uL (140-450); RED BLOOD CELL COUNT(AUTO) 3.16 MIL/uL (4.20-6.10); RED CELL DISTRIBUTION WIDTH 18.6 % (11.6-13.7); WHITE BLOOD COUNT (AUTO) 14.7 K/uL (4.8-10.8)
[2018-12-14 07:13] LABS: ANION GAP 13.5 (8-16); CARBON DIOXIDE 24.6 mmol/L (21-32); CHLORIDE 105 mmol/L (98-107); CREATININE 1.8 mg/dL (0.7-1.3); GLUCOSE 113 mg/dL (74-106); POTASSIUM 4.1 mmol/L (3.5-5.1); SODIUM SERUM 139 mmol/L (136-145); UREA NITROGEN, BLOOD 28 mg/dL (7-18)
[2018-12-14 07:21] LABS: MAGNESIUM 1.5 mg/dL (1.8-2.4); PHOSPHORUS 2.6 mg/dL (2.5-4.9)
[2018-12-14 07:46] LABS: BASOPHILS % (MANUAL) 0 % (0-2); EOSINOPHILS % (MANUAL) 4 % (0-4); LYMPHOCYTES % (MANUAL) 22 % (20-46); MONOCYTES % (MANUAL) 4 % (5-12)
[2018-12-14 08:00] VITALS: BP 124/41
[2018-12-14] MEDS: LACTOBACILLUS RHAMNOSUS GG 1 EACH CAP GT SCH (08:45)
[2018-12-14] MEDS: ASCORBIC ACID 500 MG TAB GT SCH (08:45)
[2018-12-14] MEDS: amLODIPine 5 MG TAB GT SCH (08:45)
[2018-12-14] MEDS: FERROUS SULFATE 300 MG/5 ML UDC GT SCH ×2 (08:45→20:04)
[2018-12-14] MEDS: metroNIDAZOLE 500 MG TAB GT SCH ×3 (08:46→17:03)
[2018-12-14] MEDS: DOCUSATE 100 MG/10 ML UDC GT SCH ×2 (08:46→20:04)
[2018-12-14] MEDS: MULTIVITAMIN 1 TAB PO SCH (08:46)
[2018-12-14] MEDS: SUCRALFATE 1 GM TAB GT SCH ×4 (08:46→20:04)
[2018-12-14] MEDS: CLINICAL MONITORING MC SCH (09:06)
[2018-12-14 12:00] VITALS: BP 124/80
[2018-12-14] MEDS ORDERED: MAG SULF 2000 MG/WATER PREMIX 50 ML IV SCH (12:00)
[2018-12-14] MEDS: Z-GUARD PASTE TP SCH (13:22)
[2018-12-14] MEDS: GAUZE TP SCH (13:22)
[2018-12-14 16:00] VITALS: BP 115/49
[2018-12-14] MEDS: INSULIN LISPRO SLIDING SCALE 100 UNITS/ML VIAL SUBQ PRN ×2 (17:02→20:11)
[2018-12-14 20:00] VITALS: BP 133/57
[2018-12-15] VITALS: BP 132/62
[2018-12-15] MEDS: POTASSIUM CHL 20 MEQ/ 1/2 NS 1,000 ML IV SCH ×3 (03:15→19:40)
[2018-12-15 04:00] VITALS: BP 113/52
[2018-12-15] MEDS: CITRIC ACID/SODIUM CITRATE 30 ML UDC GT SCH ×3 (05:37→21:23)
[2018-12-15] MEDS: PIPERACILLIN/TAZOBACTAM 3.375 GM in DEXTROSE 5% 50 ML IV SCH ×3 (05:37→21:23)
[2018-12-15] MEDS: BLOOD GLUCOSE MONITORING 1 DEV DEV FS SCH ×4 (05:37→21:22)
[2018-12-15] MEDS: LEVOTHYROXINE 0.075 MG TAB GT SCH (05:37)
[2018-12-15 06:47] LABS: MAGNESIUM 1.6 mg/dL (1.8-2.4); PHOSPHORUS 2.6 mg/dL (2.5-4.9)
[2018-12-15 07:01] LABS: ANION GAP 13.8 (8-16); CARBON DIOXIDE 24.1 mmol/L (21-32); CHLORIDE 104 mmol/L (98-107); CREATININE 1.7 mg/dL (0.7-1.3); GLUCOSE 162 mg/dL (74-106); POTASSIUM 3.9 mmol/L (3.5-5.1); SODIUM SERUM 138 mmol/L (136-145); UREA NITROGEN, BLOOD 30 mg/dL (7-18)
[2018-12-15 07:18] LABS: HEMATOCRIT 22.4 % (36-52); MEAN CORPUSCULAR HEMOGLOBIN 24 pg (27-31); MEAN CORPUSCULAR HGB CONC 31 g/dL (33-37); MEAN CORPUSCULAR VOLUME 76.7 fL (80-94); PLATELET COUNT (AUTO) 145 K/uL (140-450); RED BLOOD CELL COUNT(AUTO) 2.92 MIL/uL (4.20-6.10); RED CELL DISTRIBUTION WIDTH 18.7 % (11.6-13.7); WHITE BLOOD COUNT (AUTO) 13.2 K/uL (4.8-10.8)
[2018-12-15 07:33] LABS: HEMOGLOBIN 6.9 g/dL (12.0-18.0)
[2018-12-15 08:00] VITALS: BP 136/40
[2018-12-15] MEDS ORDERED: MAGNESIUM OXIDE 400 MG TAB GT SCH (09:00)
[2018-12-15] MEDS ORDERED: SODIUM FERRIC GLUCONATE 125 MG in NACL 0.9% 100 ML IV SCH (09:30)
[2018-12-15 09:35] LABS: EOSINOPHILS % (MANUAL) 3 % (0-4); LYMPHOCYTES % (MANUAL) 20 % (20-46); MONOCYTES % (MANUAL) 7 % (5-12)
[2018-12-15] MEDS: DOCUSATE 100 MG/10 ML UDC GT SCH ×2 (09:59→21:23)
[2018-12-15] MEDS: FERROUS SULFATE 300 MG/5 ML UDC GT SCH ×2 (09:59→21:23)
[2018-12-15] MEDS: MULTIVITAMIN 1 TAB PO SCH (10:00)
[2018-12-15] MEDS: SUCRALFATE 1 GM TAB GT SCH ×4 (10:00→21:24)
[2018-12-15] MEDS: LACTOBACILLUS RHAMNOSUS GG 1 EACH CAP GT SCH (10:00)
[2018-12-15] MEDS: ASCORBIC ACID 500 MG TAB GT SCH (10:00)
[2018-12-15] MEDS: metroNIDAZOLE 500 MG TAB GT SCH ×3 (10:00→16:30)
[2018-12-15] MEDS: CLINICAL MONITORING MC SCH (10:01)
[2018-12-15] MEDS: amLODIPine 5 MG TAB GT SCH (10:01)
[2018-12-15 12:00] VITALS: BP 135/49
[2018-12-15] MEDS: ACETAMINOPHEN 325 MG TAB PO SCH ×3 (12:00→18:10)
[2018-12-15] MEDS: GAUZE TP SCH (12:44)
[2018-12-15] MEDS: Z-GUARD PASTE TP SCH (12:44)
[2018-12-15] MEDS: INSULIN LISPRO SLIDING SCALE 100 UNITS/ML VIAL SUBQ PRN ×3 (13:11→21:26)
[2018-12-15 14:11] LABS: BASOPHILS # (AUTO) 0.1 K/uL (0.00-0.22); BASOPHILS % (AUTO) 0.9 % (0.0-2.0); EOSINOPHILS # (AUTO) 0.4 K/uL (0-0.4); HEMATOCRIT 21.9 % (36-52); LYMPHOCYTES # (AUTO) 3.2 K/uL (2.0-11.5); MEAN CORPUSCULAR HEMOGLOBIN 24 pg (27-31); MEAN CORPUSCULAR HGB CONC 31 g/dL (33-37); MEAN CORPUSCULAR VOLUME 76.7 fL (80-94); MONOCYTES # (AUTO) 0.9 K/uL (0.8-1.0); MONOCYTES % (AUTO) 6.2 % (1.7-9.3); NEUTROPHILS # (AUTO) 9.4 K/uL (1.8-7.7); NEUTROPHILS % (AUTO) 66.9 % (42.2-75.2); PLATELET COUNT (AUTO) 141 K/uL (140-450); RED BLOOD CELL COUNT(AUTO) 2.86 MIL/uL (4.20-6.10); RED CELL DISTRIBUTION WIDTH 18.7 % (11.6-13.7)
[2018-12-15 14:19] LABS: HEMOGLOBIN 6.9 g/dL (12.0-18.0)
[2018-12-15] MEDS: FUROSEMIDE 20 MG TAB PO SCH ×2 (15:55→16:00)
[2018-12-15 16:00] VITALS: BP 138/50
[2018-12-15 20:00] VITALS: BP 122/47
[2018-12-15] MEDS ORDERED: FUROSEMIDE 20 MG TAB PO SCH (22:00)
[2018-12-15 22:27] LABS: BASOPHILS # (AUTO) 0.1 K/uL (0.00-0.22); BASOPHILS % (AUTO) 0.6 % (0.0-2.0); EOSINOPHILS # (AUTO) 0.3 K/uL (0-0.4); EOSINOPHILS % (AUTO) 3.5 % (0.0-4.0); HEMATOCRIT 20.2 % (36-52); LYMPHOCYTES # (AUTO) 2.5 K/uL (2.0-11.5); LYMPHOCYTES % (AUTO) 25.6 % (20.5-51.1); MEAN CORPUSCULAR HEMOGLOBIN 25 pg (27-31); MEAN CORPUSCULAR HGB CONC 32 g/dL (33-37); MEAN CORPUSCULAR VOLUME 78.6 fL (80-94); MONOCYTES # (AUTO) 0.6 K/uL (0.8-1.0); MONOCYTES % (AUTO) 5.8 % (1.7-9.3); NEUTROPHILS # (AUTO) 6.3 K/uL (1.8-7.7); NEUTROPHILS % (AUTO) 64.5 % (42.2-75.2); PLATELET COUNT (AUTO) 110 K/uL (140-450); RED BLOOD CELL COUNT(AUTO) 2.57 MIL/uL (4.20-6.10); RED CELL DISTRIBUTION WIDTH 18.3 % (11.6-13.7); WHITE BLOOD COUNT (AUTO) 9.7 K/uL (4.8-10.8)
[2018-12-15 22:32] LABS: HEMOGLOBIN 6.4 g/dL (12.0-18.0)
[2018-12-16] VITALS (8 sets, daily range): BP systolic 116–142; BP diastolic 42–61
[2018-12-16] MEDS ORDERED: FUROSEMIDE 20 MG TAB PO SCH
[2018-12-16] MEDS: ACETAMINOPHEN 325 MG TAB PO SCH ×2 (00:44→04:33)
[2018-12-16] MEDS: POTASSIUM CHL 20 MEQ/ 1/2 NS 1,000 ML IV SCH ×5 (04:00→22:22)
[2018-12-16 04:12] LABS: BASOPHILS # (AUTO) 0.4 K/uL (0.00-0.22); BASOPHILS % (AUTO) 3.3 % (0.0-2.0); EOSINOPHILS # (AUTO) 0.6 K/uL (0-0.4); EOSINOPHILS % (AUTO) 4.5 % (0.0-4.0); HEMATOCRIT 28.5 % (36-52); HEMOGLOBIN 8.9 g/dL (12.0-18.0); LYMPHOCYTES # (AUTO) 2.3 K/uL (2.0-11.5); LYMPHOCYTES % (AUTO) 18.3 % (20.5-51.1); MEAN CORPUSCULAR HEMOGLOBIN 24 pg (27-31); MEAN CORPUSCULAR HGB CONC 31 g/dL (33-37); MEAN CORPUSCULAR VOLUME 77.9 fL (80-94); MONOCYTES # (AUTO) 0.6 K/uL (0.8-1.0); MONOCYTES % (AUTO) 4.9 % (1.7-9.3); NEUTROPHILS # (AUTO) 8.6 K/uL (1.8-7.7); PLATELET COUNT (AUTO) 133 K/uL (140-450); RED BLOOD CELL COUNT(AUTO) 3.66 MIL/uL (4.20-6.10); RED CELL DISTRIBUTION WIDTH 17.8 % (11.6-13.7); WHITE BLOOD COUNT (AUTO) 12.5 K/uL (4.8-10.8)
[2018-12-16] MEDS: PIPERACILLIN/TAZOBACTAM 3.375 GM in DEXTROSE 5% 50 ML IV SCH ×3 (04:32→20:30)
[2018-12-16] MEDS: CITRIC ACID/SODIUM CITRATE 30 ML UDC GT SCH ×2 (04:33→13:54)
[2018-12-16] MEDS: LEVOTHYROXINE 0.075 MG TAB GT SCH (05:44)
[2018-12-16] MEDS: BLOOD GLUCOSE MONITORING 1 DEV DEV FS SCH ×4 (05:48→21:29)
[2018-12-16] MEDS: INSULIN LISPRO SLIDING SCALE 100 UNITS/ML VIAL SUBQ PRN (06:30)
[2018-12-16 07:16] LABS: ANION GAP 12.3 (8-16); CARBON DIOXIDE 25.5 mmol/L (21-32); CHLORIDE 104 mmol/L (98-107); CREATININE 1.7 mg/dL (0.7-1.3); GLUCOSE 195 mg/dL (74-106); POTASSIUM 3.8 mmol/L (3.5-5.1); SODIUM SERUM 138 mmol/L (136-145); UREA NITROGEN, BLOOD 29 mg/dL (7-18)
[2018-12-16 07:18] LABS: MAGNESIUM 1.6 mg/dL (1.8-2.4); PHOSPHORUS 2.7 mg/dL (2.5-4.9)
[2018-12-16] MEDS: FERROUS SULFATE 300 MG/5 ML UDC GT SCH (08:34)
[2018-12-16] MEDS: metroNIDAZOLE 500 MG TAB GT SCH ×2 (08:34→13:54)
[2018-12-16] MEDS: ASCORBIC ACID 500 MG TAB GT SCH (08:34)
[2018-12-16] MEDS: LACTOBACILLUS RHAMNOSUS GG 1 EACH CAP GT SCH (08:34)
[2018-12-16] MEDS: DOCUSATE 100 MG/10 ML UDC GT SCH (08:34)
[2018-12-16] MEDS: CLINICAL MONITORING MC SCH (08:35)
[2018-12-16] MEDS: MULTIVITAMIN 1 TAB PO SCH (08:35)
[2018-12-16] MEDS: SUCRALFATE 1 GM TAB GT SCH ×2 (08:35→13:54)
[2018-12-16] MEDS: amLODIPine 5 MG TAB GT SCH (08:35)
[2018-12-16 13:23] LABS: BASOPHILS % (AUTO) 0.3 % (0.0-2.0); EOSINOPHILS # (AUTO) 0.5 K/uL (0-0.4); EOSINOPHILS % (AUTO) 2.8 % (0.0-4.0); HEMATOCRIT 31.4 % (36-52); HEMOGLOBIN 9.9 g/dL (12.0-18.0); LYMPHOCYTES # (AUTO) 3.9 K/uL (2.0-11.5); LYMPHOCYTES % (AUTO) 21.9 % (20.5-51.1); MEAN CORPUSCULAR HEMOGLOBIN 24 pg (27-31); MEAN CORPUSCULAR HGB CONC 32 g/dL (33-37); MEAN CORPUSCULAR VOLUME 77.2 fL (80-94); MONOCYTES # (AUTO) 0.8 K/uL (0.8-1.0); MONOCYTES % (AUTO) 4.8 % (1.7-9.3); NEUTROPHILS # (AUTO) 12.3 K/uL (1.8-7.7); NEUTROPHILS % (AUTO) 70.2 % (42.2-75.2); PLATELET COUNT (AUTO) 165 K/uL (140-450); RED BLOOD CELL COUNT(AUTO) 4.07 MIL/uL (4.20-6.10); RED CELL DISTRIBUTION WIDTH 17.7 % (11.6-13.7); WHITE BLOOD COUNT (AUTO) 17.6 K/uL (4.8-10.8)
[2018-12-16] MEDS: GAUZE TP SCH (13:55)
[2018-12-16] MEDS: Z-GUARD PASTE TP SCH (13:55)
[2018-12-16] MEDS: ONDANSETRON 4 MG/2 ML VIAL IM/IVP PRN (15:22)
[2018-12-16] MEDS ORDERED: MIDAZOLAM 2 MG/2 ML VIAL ONE (16:01)
[2018-12-16] MEDS ORDERED: fentaNYL 0.05 MG/ML VIAL ONE (16:01)
[2018-12-16] MEDS ORDERED: MIDAZOLAM 2 MG/2 ML VIAL IVP ONE (17:40)
[2018-12-16] MEDS ORDERED: fentaNYL 0.05 MG/ML VIAL IVP ONE (17:40)
[2018-12-16] MEDS: PANTOPRAZOLE 40 MG INJ VIAL IVP SCH (20:31)
[2018-12-16] MEDS: METOCLOPRAMIDE 10 MG/2 ML INJ VIAL IVP SCH (20:31)
[2018-12-16 20:51] LABS: HEMATOCRIT 30.4 % (36-52); HEMOGLOBIN 9.6 g/dL (12.0-18.0); MEAN CORPUSCULAR HEMOGLOBIN 24 pg (27-31); MEAN CORPUSCULAR HGB CONC 32 g/dL (33-37); MEAN CORPUSCULAR VOLUME 76.8 fL (80-94); PLATELET COUNT (AUTO) 165 K/uL (140-450); RED BLOOD CELL COUNT(AUTO) 3.96 MIL/uL (4.20-6.10); RED CELL DISTRIBUTION WIDTH 17.9 % (11.6-13.7); WHITE BLOOD COUNT (AUTO) 21.5 K/uL (4.8-10.8)
[2018-12-16] MEDS ORDERED: METOCLOPRAMIDE 10 MG/2 ML INJ VIAL IVP SCH (21:00)
[2018-12-16] MEDS ORDERED: PANTOPRAZOLE 40 MG INJ VIAL IVP SCH (21:00)
[2018-12-16 21:22] LABS: BASOPHILS % (MANUAL) 0 % (0-2); EOSINOPHILS % (MANUAL) 0 % (0-4); LYMPHOCYTES % (MANUAL) 13 % (20-46); MONOCYTES % (MANUAL) 4 % (5-12)
[2018-12-17 04:00] VITALS: BP 118/37
[2018-12-17] MEDS: PIPERACILLIN/TAZOBACTAM 3.375 GM in DEXTROSE 5% 50 ML IV SCH ×3 (04:26→20:29)
[2018-12-17] MEDS: METOCLOPRAMIDE 10 MG/2 ML INJ VIAL IVP SCH ×3 (04:26→20:30)
[2018-12-17] MEDS: POTASSIUM CHL 20 MEQ/ 1/2 NS 1,000 ML IV SCH (04:27)
[2018-12-17] MEDS: BLOOD GLUCOSE MONITORING 1 DEV DEV FS SCH ×4 (06:01→20:50)
[2018-12-17] MEDS: LEVOTHYROXINE 0.075 MG TAB GT SCH (06:30)
[2018-12-17] MEDS: ONDANSETRON 4 MG/2 ML VIAL IM/IVP PRN (06:35)
[2018-12-17 06:53] LABS: ANION GAP 11.9 (8-16); CARBON DIOXIDE 26.1 mmol/L (21-32); CHLORIDE 104 mmol/L (98-107); CREATININE 1.8 mg/dL (0.7-1.3); GLUCOSE 104 mg/dL (74-106); SODIUM SERUM 138 mmol/L (136-145); UREA NITROGEN, BLOOD 27 mg/dL (7-18)
[2018-12-17 06:58] LABS: BASOPHILS # (AUTO) 0.1 K/uL (0.00-0.22); BASOPHILS % (AUTO) 0.4 % (0.0-2.0); EOSINOPHILS # (AUTO) 0.5 K/uL (0-0.4); EOSINOPHILS % (AUTO) 2.1 % (0.0-4.0); HEMATOCRIT 26.9 % (36-52); HEMOGLOBIN 8.5 g/dL (12.0-18.0); LYMPHOCYTES # (AUTO) 3.9 K/uL (2.0-11.5); LYMPHOCYTES % (AUTO) 18.1 % (20.5-51.1); MEAN CORPUSCULAR HEMOGLOBIN 25 pg (27-31); MEAN CORPUSCULAR HGB CONC 32 g/dL (33-37); MEAN CORPUSCULAR VOLUME 78.3 fL (80-94); MONOCYTES # (AUTO) 1.2 K/uL (0.8-1.0); MONOCYTES % (AUTO) 5.4 % (1.7-9.3); PLATELET COUNT (AUTO) 156 K/uL (140-450); RED BLOOD CELL COUNT(AUTO) 3.43 MIL/uL (4.20-6.10); RED CELL DISTRIBUTION WIDTH 17.9 % (11.6-13.7); WHITE BLOOD COUNT (AUTO) 21.6 K/uL (4.8-10.8)
[2018-12-17 07:00] LABS: MAGNESIUM 1.3 mg/dL (1.8-2.4); PHOSPHORUS 3.5 mg/dL (2.5-4.9)
[2018-12-17] MEDS: CLINICAL MONITORING MC SCH (09:00)
[2018-12-17] MEDS: MULTIVITAMIN 1 TAB PO SCH (09:00)
[2018-12-17] MEDS: LACTOBACILLUS RHAMNOSUS GG 1 EACH CAP GT SCH (09:00)
[2018-12-17] MEDS: PANTOPRAZOLE 40 MG INJ VIAL IVP SCH ×2 (09:04→20:30)
[2018-12-17 10:38] VITALS: BP 128/53
[2018-12-17] MEDS ORDERED: MAG SULF 2000 MG/WATER PREMIX 50 ML IV ONE (11:45)
[2018-12-17 11:52] VITALS: BP 120/53
[2018-12-17] MEDS: Z-GUARD PASTE TP SCH (12:33)
[2018-12-17] MEDS: GAUZE TP SCH (12:33)
[2018-12-17] MEDS: PHARMACY COMMENTS MC SCH ×2 (12:34→18:12)
[2018-12-17] MEDS: VANCOMYCIN 500 MG VIAL PO SCH ×2 (12:34→18:12)
[2018-12-17 16:00] VITALS: BP 112/42
[2018-12-17] MEDS ORDERED: POTASSIUM CHL 20 MEQ/D5-1/2NS 1,000 ML IV SCH (18:30)
[2018-12-17 20:00] VITALS: BP 138/54
[2018-12-17 23:50] VITALS: BP 131/52
[2018-12-18 04:00] VITALS: BP 127/60
[2018-12-18] MEDS: PIPERACILLIN/TAZOBACTAM 3.375 GM in DEXTROSE 5% 50 ML IV SCH (05:25)
[2018-12-18] MEDS: METOCLOPRAMIDE 10 MG/2 ML INJ VIAL IVP SCH (05:25)
[2018-12-18] MEDS: VANCOMYCIN 500 MG VIAL PO SCH ×2 (05:25)
[2018-12-18] MEDS: PHARMACY COMMENTS MC SCH ×2 (05:27)
[2018-12-18] MEDS: BLOOD GLUCOSE MONITORING 1 DEV DEV FS SCH (05:32)
[2018-12-18] MEDS: LEVOTHYROXINE 0.075 MG TAB GT SCH (05:32)
[2018-12-18 06:13] LABS: BASOPHILS # (AUTO) 0.1 K/uL (0.00-0.22); BASOPHILS % (AUTO) 0.5 % (0.0-2.0); EOSINOPHILS # (AUTO) 0.5 K/uL (0-0.4); EOSINOPHILS % (AUTO) 3.9 % (0.0-4.0); HEMATOCRIT 25.7 % (36-52); HEMOGLOBIN 8.1 g/dL (12.0-18.0); LYMPHOCYTES # (AUTO) 3.1 K/uL (2.0-11.5); MEAN CORPUSCULAR HEMOGLOBIN 25 pg (27-31); MEAN CORPUSCULAR HGB CONC 32 g/dL (33-37); MEAN CORPUSCULAR VOLUME 77.8 fL (80-94); MONOCYTES # (AUTO) 0.8 K/uL (0.8-1.0); MONOCYTES % (AUTO) 5.9 % (1.7-9.3); NEUTROPHILS # (AUTO) 8.6 K/uL (1.8-7.7); NEUTROPHILS % (AUTO) 65.7 % (42.2-75.2); PLATELET COUNT (AUTO) 153 K/uL (140-450); RED BLOOD CELL COUNT(AUTO) 3.31 MIL/uL (4.20-6.10); RED CELL DISTRIBUTION WIDTH 18.4 % (11.6-13.7); WHITE BLOOD COUNT (AUTO) 13.1 K/uL (4.8-10.8)
[2018-12-18 06:53] LABS: ANION GAP 12.3 (8-16); CARBON DIOXIDE 23.2 mmol/L (21-32); CHLORIDE 109 mmol/L (98-107); CREATININE 1.7 mg/dL (0.7-1.3); GLUCOSE 105 mg/dL (74-106); POTASSIUM 3.5 mmol/L (3.5-5.1); SODIUM SERUM 141 mmol/L (136-145); UREA NITROGEN, BLOOD 24 mg/dL (7-18)
[2018-12-18 07:02] LABS: MAGNESIUM 1.3 mg/dL (1.8-2.4); PHOSPHORUS 4.7 mg/dL (2.5-4.9)
[2018-12-18] MEDS ORDERED: LORazepam 2 MG/ML VIAL IVP PRN (07:45)
[2018-12-18] MEDS ORDERED: MORPHINE SULFATE 100 MG in NACL 0.9% 90 ML IV PRN (07:45)
[2018-12-18 08:00] VITALS: BP 140/60
[2018-12-18] MEDS: LORazepam 2 MG/ML VIAL IVP SCH ×2 (10:30→11:10)
[2018-12-18] MEDS ORDERED: LORazepam 50 MG in NACL 0.9% 25 ML IV PRN (10:45)
[2018-12-18 12:00] VITALS: BP 79/35
[2018-12-18] MEDS: MORPHINE SULFATE 10 MG/ML VIAL IVP PRN ×2 (15:58→16:37)
[2018-12-18 16:00] VITALS: BP 116/44
[2018-12-18] MEDS ORDERED: MORPHINE SULFATE 500 MG in NACL 0.9% 500 ML IV SCH (16:10)
[2018-12-18 16:37] VITALS: BP 116/44
[2018-12-18] MEDS ORDERED: ACETYLCYSTEINE 10% (100 MG/ML) 100 MG/ML VIAL INH SCH (19:15)
== END 2018-12-18 18:54 | disposition expired | DRG 870 ==
LOC: MED 02:02 → MTU 06:36
PROVIDERS: ADMIT General Practice; ATTEND General Practice
PROC: 5A1955Z Respiratory Ventilation, Greater than 96 Consecutive Hours (ICD-10-PCS; principal; 2018-12-08)
PROC: 06HY33Z Insertion of Infusion Device into Lower Vein, Percutaneous Approach (ICD-10-PCS; 2018-12-08)
PROC: B54CZZA Ultrasonography of Left Lower Extremity Veins, Guidance (ICD-10-PCS; 2018-12-08)
PROC: 5A1955Z Respiratory Ventilation, Greater than 96 Consecutive Hours (ICD-10-PCS; 2018-12-13)
PROC: 30233N1 Transfusion of Nonautologous Red Blood Cells into Peripheral Vein, Percutaneous Approach (ICD-10-PCS; 2018-12-15)
PROC: 0DJ08ZZ Inspection of Upper Intestinal Tract, Via Natural or Artificial Opening Endoscopic (ICD-10-PCS; 2018-12-16)
DX: A41.9 Sepsis, unspecified organism (principal); J69.0 Pneumonitis due to inhalation of food and vomit; J96.21 Acute and chronic respiratory failure with hypoxia; K22.11 Ulcer of esophagus with bleeding; N17.0 Acute kidney failure with tubular necrosis; E87.1 Hypo-osmolality and hyponatremia; E72.20 Disorder of urea cycle metabolism, unspecified; J44.1 Chronic obstructive pulmonary disease with (acute) exacerbation; Z99.11 Dependence on respirator [ventilator] status; E87.0 Hyperosmolality and hypernatremia; E83.42 Hypomagnesemia; C44.321 Squamous cell carcinoma of skin of nose; D50.9 Iron deficiency anemia, unspecified; D63.8 Anemia in other chronic diseases classified elsewhere; E11.9 Type 2 diabetes mellitus without complications; E87.6 Hypokalemia; I10 Essential (primary) hypertension; K21.0 Gastro-esophageal reflux disease with esophagitis; K44.9 Diaphragmatic hernia without obstruction or gangrene; E86.0 Dehydration; R65.20 Severe sepsis without septic shock; R62.7 Adult failure to thrive; T17.990A Other foreign object in respiratory tract, part unspecified in causing asphyxiation, initial encounter; X58.XXXA Exposure to other specified factors, initial encounter; E83.39 Other disorders of phosphorus metabolism; I46.9 Cardiac arrest, cause unspecified; Z74.01 Bed confinement status; Z89.611 Acquired absence of right leg above knee; Z93.0 Tracheostomy status; Z93.1 Gastrostomy status; Z79.899 Other long term (current) drug therapy; Z89.511 Acquired absence of right leg below knee; Y93.89 Activity, other specified; Y92.89 Other specified places as the place of occurrence of the external cause; Y99.8 Other external cause status; Z22.322 Carrier or suspected carrier of Methicillin resistant Staphylococcus aureus; Z68.32 Body mass index [BMI] 32.0-32.9, adult
CPT/HCPCS: 36415; 36600; 71045; 74022; 76770; 80048; 80053; 80076; 80202; 81001; 81003; 82140; 82272; 82436; 82570; 82607; 82728; 82746; 82803; 82948; 83036; 83540; 83605; 83690; 83735; 83880; 84100; 84300; 84443; 84484; 85025; 85045; 85610; 85730; 86886; 86900; 86901; 86920; 87040; 87070; 87081; 87086; 87186; 87205; 93005; 93926; 93971; 94002; 94003; 96365; 96367; 99291; A4649; C9113; J1650; J1815; J2001; J2060; J2250; J2270; J2405; J2543; J2765; J2916; J3010; J3370; J3475; J3480; J7030; J7060; P9016; Q0092; Q0163